=== PATIENT | male | born 1950 | race Caucasian/White ===

== ENCOUNTER 2017-02-15 03:56 | Inpatient (IN) | payer OTHER ==
[~2017-02-15] VITALS: Ht 167.6 cm; Wt 50.8 kg
[2017-02-15] VITALS (7 sets, daily range): BP systolic 110–131
[2017-02-15] MEDS ORDERED: cefTRIAXone 1 GM IVPB PREMIX 50 ML IV ONE (04:15)
[2017-02-15] MEDS ORDERED: NACL 0.9% 1,000 ML IV ONE (04:15)
[2017-02-15] MEDS ORDERED: KETOROLAC TROMETHAMINE 30 MG VIAL IVP ONE (04:15)
[2017-02-15] MEDS ORDERED: HYDR-3924 PO (04:24)
[2017-02-15] MEDS ORDERED: KETO10TA2 PO (04:24)
[2017-02-15] MEDS ORDERED: HYDR2TAB34 PO (04:24)
[2017-02-15] MEDS ORDERED: TAMS-11 PO (04:24)
[2017-02-15] MEDS ORDERED: MORPHINE 4 MG/ML INJ. SYRINGE IVP ONE (04:30)
[2017-02-15 04:48] LABS: BILIRUBIN,URINE 2+ (NEGATIVE); BLOOD, URINE 3+ (NEGATIVE); CLARITY/URINE CLOUDY (CLEAR); COLOR,URINE RED (YELLOW); GLUCOSE,URINE NEGATIVE (NEGATIVE); KETONES,URINE TRACE (NEGATIVE); LEUKOCYTE ESTERASE ,URINE 1+ (NEGATIVE); NITRITE, URINE POSITIVE (NEGATIVE); PH,URINE >=9.0 (5.0-8.0); PROTEIN URINE 3+ (NEGATIVE)
[2017-02-15 04:55] LABS: CALCIUM 8.7 mg/dL (8.4-11.0); CREATININE 0.98 mg/dL (0.55-1.30); POTASSIUM 4.2 mmol/L (3.5-5.1)
[2017-02-15 04:59] LABS: TOTAL BILIRUBIN 0.4 mg/dL (0.0-1.0); TOTAL PROTEIN, SERUM 7.5 g/dL (6.4-8.3)
[2017-02-15 04:59] LABS: BACTERIA,URINE MODERATE /HPF (None Seen); RBC,URINE >100 /HPF (0-3)
[2017-02-15 05:18] LABS: HEMOGLOBIN 10.1 g/dL (14.0-18.0); MEAN CORPUSCULAR HEMOGLOBIN 33 pg (27-31); MEAN CORPUSCULAR HGB CONC 35 % (32-36); MEAN CORPUSCULAR VOLUME 95 fL (79.0-98.0); PLATELET COUNT (AUTO) 241 K/uL (130-430); RED BLOOD CELL COUNT(AUTO) 3.07 MIL/uL (4.2-6.2); RED CELL DISTRIBUTION WIDTH 11.9 % (9.0-15.0)
[2017-02-15 05:36] LABS: ATYPICAL LYMPHOCYTES % 0 % (0-0); BAND % (MANUAL) 9 % (0-6); LYMPHOCYTES % (MANUAL) 2 % (20-46); MONOCYTES % (MANUAL) 2 % (0-11)
[2017-02-15 05:37] LABS: BASOPHILS % (MANUAL) 0 % (0-2); EOSINOPHILS % (MANUAL) 0 % (0-7)
[2017-02-15] MEDS: D5NS 1,000 ML IV SCH ×2 (06:08→17:33)
[2017-02-15] MEDS ORDERED: DOCUSATE SODIUM 100 MG CAPSULE PO PRN (11:00)
[2017-02-15] MEDS ORDERED: MAGNESIUM SULFATE 50 ML IV PRN (11:00)
[2017-02-15] MEDS ORDERED: LORazepam 2 MG/ML VIAL IVP PRN (11:00)
[2017-02-15] MEDS ORDERED: POTASSIUM CHLORIDE 10 MEQ TAB.PRT.SR PO PRN (11:00)
[2017-02-15] MEDS ORDERED: ACETAMINOPHEN 325 MG TABLET PO PRN (11:00)
[2017-02-15] MEDS ORDERED: ZOLPIDEM TARTRATE 5 MG TABLET PO PRN (11:00)
[2017-02-15] MEDS ORDERED: ONDANSETRON HCL 4 MG/2 ML VIAL IVP PRN (11:00)
[2017-02-15] MEDS: MORPHINE 2 MG/ML INJ. SYRINGE IVP PRN ×3 (12:45→23:21)
[2017-02-15] MEDS ORDERED: TAMSULOSIN HCL 0.4 MG CAP PO SCH (21:00)
[2017-02-15] MEDS: HEPARIN SODIUM,PORCINE 5000 UNITS/ML VIAL SUBCUT SCH (21:00)
[2017-02-15] MEDS: HYDROcodone/ACETAMIN 7.5-325 MG TAB PO PRN (21:49)
[2017-02-16] MEDS ORDERED: cefTRIAXone 1 GM in D5W 50 ML IV SCH (05:00)
[2017-02-16] MEDS ORDERED: IOHEXOL 100 ML IV ONE (06:07)
[2017-02-16] MEDS: D5NS 1,000 ML IV SCH (06:32)
[2017-02-16 06:38] LABS: BASOPHILS % (AUTO) 0.1 % (0.0-2.0); EOSINOPHILS % (AUTO) 0.1 % (0.0-4.0); HEMATOCRIT 27.8 % (36-54); HEMOGLOBIN 9.5 g/dL (14.0-18.0); LYMPHOCYTES # (AUTO) 0.3 K/uL (1.0-5.5); MEAN CORPUSCULAR HEMOGLOBIN 33 pg (27-31); MEAN CORPUSCULAR HGB CONC 34 % (32-36); MEAN CORPUSCULAR VOLUME 95 fL (79.0-98.0); MONOCYTES # (AUTO) 0.3 K/uL (0.0-1.0); MONOCYTES % (AUTO) 4.2 % (1.7-9.3); NEUTROPHILS # (AUTO) 6.4 K/uL (1.8-7.7); NEUTROPHILS % (AUTO) 91.6 % (40.0-70.0); PLATELET COUNT (AUTO) 263 K/uL (130-430); RED BLOOD CELL COUNT(AUTO) 2.93 MIL/uL (4.2-6.2); RED CELL DISTRIBUTION WIDTH 12.2 % (9.0-15.0)
[2017-02-16 07:01] LABS: CALCIUM 8.5 mg/dL (8.4-11.0); CREATININE 0.69 mg/dL (0.55-1.30); POTASSIUM 3.8 mmol/L (3.5-5.1)
[2017-02-16 08:00] VITALS: BP_SYST 135
[2017-02-16] MEDS: HEPARIN SODIUM,PORCINE 5000 UNITS/ML VIAL SUBCUT SCH (09:51)
[2017-02-16 10:20] LABS: BLOOD, URINE 3+ (NEGATIVE); CLARITY/URINE SL CLOUDY (CLEAR); COLOR,URINE BROWN (YELLOW); GLUCOSE,URINE NEGATIVE (NEGATIVE); KETONES,URINE NEGATIVE (NEGATIVE); LEUKOCYTE ESTERASE ,URINE 1+ (NEGATIVE); NITRITE, URINE POSITIVE (NEGATIVE); PH,URINE 8.5 (5.0-8.0); PROTEIN URINE 3+ (NEGATIVE)
[2017-02-16 10:29] LABS: BILIRUBIN,URINE NEGATIVE (NEGATIVE)
[2017-02-16 10:31] LABS: BACTERIA,URINE MODERATE /HPF (None Seen); MUCUS,URINE None Seen /LPF (None Seen); RBC,URINE >100 /HPF (0-3)
[2017-02-16 12:20] VITALS: BP_SYST 126
[2017-02-16] MEDS: PIPERACILLIN/TAZO 3.375/DEX-IS 50 ML IV SCH ×3 (12:43→23:57)
[2017-02-16 16:42] VITALS: BP_SYST 136
[2017-02-16] MEDS: MORPHINE 2 MG/ML INJ. SYRINGE IVP PRN (18:15)
[2017-02-16 20:00] VITALS: BP_SYST 128
[2017-02-16] MEDS ORDERED: TAMSULOSIN HCL 0.4 MG CAP PO SCH (21:00)
[2017-02-16] MEDS: LACTOBACILLUS RHAMNOSUS GG 1 CAP CAPSULE PO SCH (21:47)
[2017-02-17 00:21] VITALS: BP_SYST 127
[2017-02-17 04:27] VITALS: BP_SYST 128
[2017-02-17] MEDS: PIPERACILLIN/TAZO 3.375/DEX-IS 50 ML IV SCH ×3 (05:19→17:56)
[2017-02-17] MEDS: D5NS 1,000 ML IV SCH (05:20)
[2017-02-17] MEDS: MORPHINE 2 MG/ML INJ. SYRINGE IVP PRN ×5 (05:27→20:40)
[2017-02-17 06:47] LABS: BASOPHILS % (AUTO) 0.2 % (0.0-2.0); EOSINOPHILS % (AUTO) 0.5 % (0.0-4.0); HEMOGLOBIN 7.4 g/dL (14.0-18.0); LYMPHOCYTES # (AUTO) 0.4 K/uL (1.0-5.5); LYMPHOCYTES % (AUTO) 11.9 % (20.5-51.5); MEAN CORPUSCULAR HEMOGLOBIN 32 pg (27-31); MEAN CORPUSCULAR HGB CONC 35 % (32-36); MEAN CORPUSCULAR VOLUME 94 fL (79.0-98.0); MONOCYTES # (AUTO) 0.3 K/uL (0.0-1.0); MONOCYTES % (AUTO) 8.1 % (1.7-9.3); NEUTROPHILS # (AUTO) 2.7 K/uL (1.8-7.7); NEUTROPHILS % (AUTO) 79.3 % (40.0-70.0); PLATELET COUNT (AUTO) 264 K/uL (130-430); RED BLOOD CELL COUNT(AUTO) 2.28 MIL/uL (4.2-6.2); RED CELL DISTRIBUTION WIDTH 11.8 % (9.0-15.0); WHITE BLOOD COUNT (AUTO) 3.4 K/uL (4.8-10.8)
[2017-02-17 07:07] LABS: HEMATOCRIT 21.3 % (36-54)
[2017-02-17 07:20] LABS: CALCIUM 8.2 mg/dL (8.4-11.0); CREATININE 0.74 mg/dL (0.55-1.30); POTASSIUM 3.9 mmol/L (3.5-5.1)
[2017-02-17] MEDS: LACTOBACILLUS RHAMNOSUS GG 1 CAP CAPSULE PO SCH ×2 (08:20→20:39)
[2017-02-17] MEDS ORDERED: TAMSULOSIN HCL 0.4 MG CAP PO SCH (09:53)
[2017-02-17] MEDS ORDERED: COMMUNICATION ORDER XX ONE (10:00)
[2017-02-17] MEDS ORDERED: TAMSULOSIN HCL 0.4 MG CAP PO ONE (10:15)
[2017-02-17] MEDS: HYDROcodone/ACETAMIN 7.5-325 MG TAB PO PRN ×2 (11:18→15:19)
[2017-02-17 12:18] VITALS: BP_SYST 107
[2017-02-17] MEDS: NACL 0.9% 1,000 ML IV SCH (16:34)
[2017-02-17 16:40] VITALS: BP_SYST 100
[2017-02-17 18:03] LABS: HEMOGLOBIN 8.1 g/dL (14.0-18.0)
[2017-02-17 20:15] VITALS: BP_SYST 110
[2017-02-17] MEDS: TAMSULOSIN HCL 0.4 MG CAP PO SCH (20:39)
[2017-02-18] VITALS (7 sets, daily range): BP systolic 98–134
[2017-02-18] MEDS: MORPHINE 2 MG/ML INJ. SYRINGE IVP PRN ×5 (00:55→19:56)
[2017-02-18] MEDS: NACL 0.9% 1,000 ML IV SCH ×3 (01:15→21:24)
[2017-02-18] MEDS: PIPERACILLIN/TAZO 3.375/DEX-IS 50 ML IV SCH ×5 (02:50→23:02)
[2017-02-18 06:48] LABS: BASOPHILS % (AUTO) 0.4 % (0.0-2.0); EOSINOPHILS # (AUTO) 0.1 K/uL (0.0-0.4); HEMATOCRIT 25.4 % (36-54); HEMOGLOBIN 8.8 g/dL (14.0-18.0); LYMPHOCYTES # (AUTO) 0.5 K/uL (1.0-5.5); LYMPHOCYTES % (AUTO) 16.5 % (20.5-51.5); MEAN CORPUSCULAR HEMOGLOBIN 31 pg (27-31); MEAN CORPUSCULAR HGB CONC 35 % (32-36); MEAN CORPUSCULAR VOLUME 91 fL (79.0-98.0); MONOCYTES # (AUTO) 0.2 K/uL (0.0-1.0); MONOCYTES % (AUTO) 7.2 % (1.7-9.3); NEUTROPHILS # (AUTO) 2.3 K/uL (1.8-7.7); NEUTROPHILS % (AUTO) 73.9 % (40.0-70.0); PLATELET COUNT (AUTO) 248 K/uL (130-430); RED BLOOD CELL COUNT(AUTO) 2.81 MIL/uL (4.2-6.2); RED CELL DISTRIBUTION WIDTH 13.7 % (9.0-15.0); WHITE BLOOD COUNT (AUTO) 3.1 K/uL (4.8-10.8)
[2017-02-18 07:05] LABS: CALCIUM 8.1 mg/dL (8.4-11.0); CREATININE 0.68 mg/dL (0.55-1.30); POTASSIUM 4.2 mmol/L (3.5-5.1)
[2017-02-18] MEDS: TAMSULOSIN HCL 0.4 MG CAP PO SCH ×2 (09:20→19:55)
[2017-02-18] MEDS: LACTOBACILLUS RHAMNOSUS GG 1 CAP CAPSULE PO SCH ×2 (09:21→19:55)
[2017-02-18] MEDS: HYDROcodone/ACETAMIN 7.5-325 MG TAB PO PRN ×3 (09:28→23:03)
[2017-02-18] MEDS ORDERED: MORPHINE SULFATE 100 MG TABLET.SA PO SCH (21:00)
[2017-02-18] MEDS: MORPHINE SULFATE 15 MG TABLET.SA PO SCH (22:45)
[2017-02-19] MEDS: MORPHINE 2 MG/ML INJ. SYRINGE IVP PRN ×2 (00:04→12:40)
[2017-02-19 03:43] VITALS: BP_SYST 125
[2017-02-19] MEDS: HYDROcodone/ACETAMIN 7.5-325 MG TAB PO PRN (05:05)
[2017-02-19] MEDS: PIPERACILLIN/TAZO 3.375/DEX-IS 50 ML IV SCH ×2 (05:06→11:52)
[2017-02-19 06:39] LABS: CALCIUM 8.5 mg/dL (8.4-11.0); CREATININE 0.78 mg/dL (0.55-1.30); POTASSIUM 4.2 mmol/L (3.5-5.1)
[2017-02-19 06:48] LABS: BASOPHILS % (AUTO) 0.5 % (0.0-2.0); EOSINOPHILS # (AUTO) 0.1 K/uL (0.0-0.4); EOSINOPHILS % (AUTO) 2.5 % (0.0-4.0); HEMATOCRIT 27.9 % (36-54); HEMOGLOBIN 9.7 g/dL (14.0-18.0); LYMPHOCYTES # (AUTO) 0.4 K/uL (1.0-5.5); LYMPHOCYTES % (AUTO) 13.9 % (20.5-51.5); MEAN CORPUSCULAR HEMOGLOBIN 32 pg (27-31); MEAN CORPUSCULAR HGB CONC 35 % (32-36); MEAN CORPUSCULAR VOLUME 91 fL (79.0-98.0); MONOCYTES # (AUTO) 0.2 K/uL (0.0-1.0); MONOCYTES % (AUTO) 7.1 % (1.7-9.3); NEUTROPHILS # (AUTO) 2.2 K/uL (1.8-7.7); PLATELET COUNT (AUTO) 298 K/uL (130-430); RED BLOOD CELL COUNT(AUTO) 3.08 MIL/uL (4.2-6.2); RED CELL DISTRIBUTION WIDTH 13.2 % (9.0-15.0); WHITE BLOOD COUNT (AUTO) 2.9 K/uL (4.8-10.8)
[2017-02-19 07:55] VITALS: BP_SYST 119
[2017-02-19] MEDS: TAMSULOSIN HCL 0.4 MG CAP PO SCH (08:23)
[2017-02-19] MEDS: NACL 0.9% 1,000 ML IV SCH (08:23)
[2017-02-19] MEDS: LACTOBACILLUS RHAMNOSUS GG 1 CAP CAPSULE PO SCH (08:23)
[2017-02-19] MEDS: MORPHINE SULFATE 15 MG TABLET.SA PO SCH (08:24)
[2017-02-19] MEDS ORDERED: CIPR-211 PO (11:30)
[2017-02-19 12:00] VITALS: BP_SYST 103
[2017-02-19 12:28] VITALS: BP_SYST 126
== END 2017-02-19 15:48 | disposition home health service (06) | DRG 812 ==
LOC: SED 03:56 → SMU 05:21
PROVIDERS: ADMIT General Practice; ATTEND General Practice
PROC: 30233N1 Transfusion of Nonautologous Red Blood Cells into Peripheral Vein, Percutaneous Approach (ICD-10-PCS; principal; 2017-02-17)
DX: D62 Acute posthemorrhagic anemia (principal); N39.0 Urinary tract infection, site not specified; E44.0 Moderate protein-calorie malnutrition; E87.1 Hypo-osmolality and hyponatremia; Z68.1 Body mass index [BMI] 19.9 or less, adult; R31.0 Gross hematuria; B96.89 Other specified bacterial agents as the cause of diseases classified elsewhere; G89.29 Other chronic pain; C09.9 Malignant neoplasm of tonsil, unspecified; D63.8 Anemia in other chronic diseases classified elsewhere; R13.10 Dysphagia, unspecified; Z92.3 Personal history of irradiation; Z79.899 Other long term (current) drug therapy; Z80.9 Family history of malignant neoplasm, unspecified; Z92.21 Personal history of antineoplastic chemotherapy
CPT/HCPCS: 36415; 76856-TC; 80048; 80053; 81000-TC; 83051; 83605; 83735-TC; 85007; 85014-TC; 85025; 85027; 86886; 86900; 86901; 86920; 87040-TC; 87086; 87186-TC; 99285; J0696; J1644; J1885; J2270; J2405; J2543; J7030; J7042; J7050; J7060; P9021; Q9967

== ENCOUNTER 2017-03-27 13:05 | Outpatient (CLI) | payer OTHER ==
[~2017-03-27 13:05] MED LIST: CIPR-211 PO; HYDR-3924 PO; HYDR2TAB34 PO; KETO10TA2 PO; TAMS-11 PO
== END 2017-03-27 17:54 | disposition home or self-care (01) ==
LOC: SUS 13:05
PROVIDERS: ATTEND Urology
DX: N40.1 Benign prostatic hyperplasia with lower urinary tract symptoms (principal); N13.30 Unspecified hydronephrosis; R31.0 Gross hematuria
CPT/HCPCS: 36415; 76770; 84153

== ENCOUNTER 2017-04-14 10:27 | Inpatient (IN) | payer OTHER ==
[~2017-04-14] VITALS: Ht 167.6 cm; Wt 51.3 kg
[2017-04-14] MEDS ORDERED: CEFTRIAXONE SOD 1 GM/ DEXTROSE,ISO 50 ML PREMIX IV ONE (11:45)
[2017-04-14] MEDS ORDERED: LR 1,000 ML IV.SOLN IV ONE (12:30)
[2017-04-14] MEDS ORDERED: ONDANSETRON HCL 4 MG/2 ML VIAL IVP ONE (12:30)
[2017-04-14] MEDS ORDERED: fentaNYL CITRATE 250 MCG/5 ML AMP IV ONE (12:30)
[2017-04-14] MEDS ORDERED: SEVOFLURANE 15 MIN GAS INH ONE (12:30)
[2017-04-14] MEDS ORDERED: PROPOFOL 200MG/ 20ML VIAL (DIPRIVAN) IV ONE (12:30)
[2017-04-14] MEDS ORDERED: KETOROLAC TROMETHAMINE 30 MG VIAL IVP ONE (12:30)
[2017-04-14] MEDS ORDERED: DEXAMETHASONE SOD PHOSPHATE 4 MG/ML VIAL IVP ONE (12:30)
[2017-04-14] MEDS ORDERED: MIDAZOLAM HCL 5 MG/5 ML VIAL IVP ONE (12:30)
[2017-04-14] MEDS ORDERED: ROCURONIUM BROMIDE 10 MG/ML (ZEMURON) IV ONE (12:30)
[2017-04-14] MEDS ORDERED: ONDANSETRON HCL 4 MG/2 ML VIAL IM PRN (12:45)
[2017-04-14] MEDS ORDERED: MORPHINE 2 MG/ML INJ. SYRINGE IVP PRN (12:45)
[2017-04-14] MEDS ORDERED: HYDROcodone/ACETAMIN 5-325 MG TAB (NORCO/ VICODIN) PO PRN (12:45)
[2017-04-14] MEDS ORDERED: LR 1,000 ML IV SCH (13:25)
[2017-04-14] MEDS ORDERED: MEPERIDINE HCL/PF 25 MG/ML DISP.SYRIN IVP PRN (13:30)
[2017-04-14] MEDS ORDERED: HYDROmorphone 2 MG/ML VIAL IVP PRN ×2 (13:30)
[2017-04-14] MEDS ORDERED: HYDROmorphone 1 MG INJ. 1 MG/ML AMPUL IVP PRN (13:30)
[2017-04-14 15:50] VITALS: BP_SYST 119
[2017-04-14 16:00] VITALS: BP_SYST 119
[2017-04-14 16:45] VITALS: BP_SYST 112
[2017-04-14] MEDS: NACL 0.9% 1,000 ML IV SCH (17:43)
[2017-04-15] VITALS (7 sets, daily range): BP systolic 90–134
[2017-04-15 08:11] LABS: BASOPHILS % (AUTO) 0.1 % (0.0-2.0); EOSINOPHILS % (AUTO) 0.1 % (0.0-4.0); HEMATOCRIT 26.4 % (36-54); HEMOGLOBIN 8.5 g/dL (14.0-18.0); LYMPHOCYTES # (AUTO) 0.6 K/uL (1.0-5.5); LYMPHOCYTES % (AUTO) 16.3 % (20.5-51.5); MEAN CORPUSCULAR HEMOGLOBIN 28 pg (27-31); MEAN CORPUSCULAR HGB CONC 32 % (32-36); MEAN CORPUSCULAR VOLUME 88 fL (79.0-98.0); MONOCYTES # (AUTO) 0.2 K/uL (0.0-1.0); MONOCYTES % (AUTO) 5.8 % (1.7-9.3); NEUTROPHILS % (AUTO) 77.7 % (40.0-70.0); PLATELET COUNT (AUTO) 197 K/uL (130-430); RED BLOOD CELL COUNT(AUTO) 2.99 MIL/uL (4.2-6.2); RED CELL DISTRIBUTION WIDTH 13.3 % (9.0-15.0); WHITE BLOOD COUNT (AUTO) 3.8 K/uL (4.8-10.8)
[2017-04-15 08:17] LABS: CALCIUM 7.9 mg/dL (8.4-11.0); CREATININE 0.68 mg/dL (0.55-1.30); PHOSPHORUS 3.7 mg/dL (2.7-4.5)
[2017-04-15] MEDS: NACL 0.9% 1,000 ML IV SCH ×4 (12:33→20:33)
[2017-04-15] MEDS ORDERED: OXYC10TA71 PO (15:18)
[2017-04-15] MEDS ORDERED: FINA5TAB3 PO (15:18)
[2017-04-15] MEDS ORDERED: HYDR-4100 PO (15:18)
[2017-04-15] MEDS ORDERED: cefTRIAXone 1 GM in D5W 50 ML IV SCH (16:00)
[2017-04-16] MEDS: NACL 0.9% 1,000 ML IV SCH ×2 (00:14→13:01)
[2017-04-16 01:12] VITALS: BP_SYST 113
[2017-04-16 04:00] VITALS: BP_SYST 110
[2017-04-16 08:00] VITALS: BP_SYST 119
[2017-04-16 08:18] LABS: BASOPHILS % (AUTO) 0.3 % (0.0-2.0); EOSINOPHILS # (AUTO) 0.1 K/uL (0.0-0.4); EOSINOPHILS % (AUTO) 3.1 % (0.0-4.0); HEMOGLOBIN 8.5 g/dL (14.0-18.0); LYMPHOCYTES # (AUTO) 0.7 K/uL (1.0-5.5); LYMPHOCYTES % (AUTO) 20.8 % (20.5-51.5); MEAN CORPUSCULAR HEMOGLOBIN 29 pg (27-31); MEAN CORPUSCULAR HGB CONC 33 % (32-36); MEAN CORPUSCULAR VOLUME 89 fL (79.0-98.0); MONOCYTES # (AUTO) 0.2 K/uL (0.0-1.0); MONOCYTES % (AUTO) 6.8 % (1.7-9.3); NEUTROPHILS # (AUTO) 2.2 K/uL (1.8-7.7); PLATELET COUNT (AUTO) 180 K/uL (130-430); RED BLOOD CELL COUNT(AUTO) 2.91 MIL/uL (4.2-6.2); RED CELL DISTRIBUTION WIDTH 13.5 % (9.0-15.0); WHITE BLOOD COUNT (AUTO) 3.2 K/uL (4.8-10.8)
[2017-04-16 08:35] LABS: CALCIUM 8.1 mg/dL (8.4-11.0); CREATININE 0.64 mg/dL (0.55-1.30); POTASSIUM 4.2 mmol/L (3.5-5.1)
[2017-04-16] MEDS ORDERED: oxyCODONE HCL 10 MG TAB.ER.12H PO SCH (09:00)
[2017-04-16] MEDS: HYDROcodone/ACETAMIN 10-325 MG TAB PO SCH ×2 (09:09→12:55)
[2017-04-16 12:35] VITALS: BP_SYST 99
[2017-04-16 14:09] VITALS: BP_SYST 99
[2017-04-16] MEDS ORDERED: CIPR-211 PO (14:23)
== END 2017-04-16 15:30 | disposition home or self-care (01) | DRG 713 ==
LOC: SMU 10:27
PROVIDERS: ADMIT Urology; ATTEND Urology
PROC: 0VB08ZZ Excision of Prostate, Via Natural or Artificial Opening Endoscopic (ICD-10-PCS; principal; 2017-04-14 11:30)
DX: N40.1 Benign prostatic hyperplasia with lower urinary tract symptoms (principal); N13.8 Other obstructive and reflux uropathy; E46 Unspecified protein-calorie malnutrition; Z68.1 Body mass index [BMI] 19.9 or less, adult; R33.8 Other retention of urine; N32.3 Diverticulum of bladder; N32.89 Other specified disorders of bladder; Z85.818 Personal history of malignant neoplasm of other sites of lip, oral cavity, and pharynx; Z87.891 Personal history of nicotine dependence; Z93.1 Gastrostomy status
CPT/HCPCS: 36415; 80048; 83735-TC; 84100-TC; 85025; 86886; 86900; 86901; 87081; 87230-TC; 88305; 94010; J0696; J1100; J1885; J2250; J2270; J2405; J2704; J3010; J7030; J7060; J7120

== ENCOUNTER 2017-09-19 10:34 | Outpatient (CLI) | payer OTHER ==
[~2017-09-19 10:34] MED LIST changes: -HYDR-3924 PO; +HYDR-4100 PO; -HYDR2TAB34 PO; -KETO10TA2 PO; +OXYC10TA71 PO; -TAMS-11 PO
== END 2017-09-19 20:09 | disposition home or self-care (01) ==
LOC: SUS 10:34
PROVIDERS: ATTEND Urology
DX: N40.1 Benign prostatic hyperplasia with lower urinary tract symptoms (principal)
CPT/HCPCS: 76770

== ENCOUNTER 2017-10-27 19:19 | Emergency (ER) | payer OTHER ==
[~2017-10-27] VITALS: Ht 167.6 cm; Wt 52.2 kg
[2017-10-27 19:34] VITALS: BP_SYST 113
--- NOTE | 2017-10-27 19:40 | NUR ---
Patient to ER bed 3 to gown for evaluation. Side rails up. Report given to Olivia ANGULO.
--- NOTE | 2017-10-27 19:55 | NUR ---
Patient AOx4, ambulatory, presents to ER with complaint of diarrhea x4 days. Patient states no fever, chills, nausea, or vomiting. No other symptoms or complaints at this time. at bedside.
--- NOTE | 2017-10-27 20:23 | NUR ---
REHANA Piedra at bedside for medical evaluation.
[2017-10-27] MEDS ORDERED: NACL 0.9% 1,000 ML IV ONE (20:28)
--- NOTE | 2017-10-27 20:35 | NUR ---
# 20 gauge angiocath placed to LAC. Use of asceptic technique. Opsite placed over site. Blood return noted. Blood for lab drawn from site. Flushed with 10 cc of normal saline. No evidence of infiltration noted. Patient tolerated well.
[2017-10-27 21:09] LABS: CALCIUM 9.3 mg/dL (8.4-11.0); CREATININE 0.56 mg/dL (0.55-1.30); POTASSIUM 4.4 mmol/L (3.5-5.1)
--- NOTE | 2017-10-27 21:13 | NUR ---
IVF infusing with no s/s of infiltration at this time. Will cont to monitor.
[2017-10-27 21:15] LABS: ALBUMIN 3.5 g/dL (3.4-4.8); TOTAL BILIRUBIN 0.3 mg/dL (0.0-1.0)
[2017-10-27] MEDS ORDERED: NS 500 ML IV ONE (21:30)
[2017-10-27 21:47] LABS: MEAN CORPUSCULAR HEMOGLOBIN 30 pg (27-31); MEAN CORPUSCULAR HGB CONC 33 % (32-36); MEAN CORPUSCULAR VOLUME 91 fL (79.0-98.0); PLATELET COUNT (AUTO) 205 K/uL (130-430); RED BLOOD CELL COUNT(AUTO) 4.08 MIL/uL (4.2-6.2); RED CELL DISTRIBUTION WIDTH 12.4 % (9.0-15.0); WHITE BLOOD COUNT (AUTO) 2.5 K/uL (4.8-10.8)
--- NOTE | 2017-10-27 22:17 | NUR ---
Patient refusing straight cath for urine specimen. Patient states he does not have urge to have a bowel movement. MD Piedra made aware.
[2017-10-27 22:19] LABS: BAND % (MANUAL) 24 % (0-6); LYMPHOCYTES % (MANUAL) 19 % (20-46); MONOCYTES % (MANUAL) 18 % (0-11)
[2017-10-27 22:20] LABS: BASOPHILS % (MANUAL) 0 % (0-2); EOSINOPHILS % (MANUAL) 2 % (0-7)
[2017-10-27 23:31] VITALS: BP_SYST 117
--- NOTE | 2017-10-27 23:31 | NUR ---
Patient given written and verbal discharge instructions and verbalizes understanding. ER MD discussed with patient the results and treatment provided. Patient in stable condition. ID arm band removed. IV catheter removed intact and dressing applied, no active bleeding. Patient educated on pain management and to follow up with PMD. Pain Scale 0/10. Opportunity for questions provided and answered.
== END 2017-10-27 23:31 | disposition home or self-care (01) ==
LOC: SED 19:19
DX: E86.0 Dehydration (principal); R19.7 Diarrhea, unspecified; Z91.011 Allergy to milk products
CPT/HCPCS: 36415; 80053; 85007; 85027; 96360; 96361; 99285; J7030; J7040

== ENCOUNTER 2017-11-26 07:22 | Emergency (ER) | payer OTHER ==
[~2017-11-26] VITALS: Ht 167.6 cm; Wt 56.7 kg
[2017-11-26 07:42] VITALS: BP_SYST 139
[2017-11-26] MEDS ORDERED: GASTROGRAFIN 120 ML ONE (09:26)
[2017-11-26 09:39] LABS: BASOPHILS % (AUTO) 0.4 % (0.0-2.0); EOSINOPHILS # (AUTO) 0.1 K/uL (0.0-0.4); EOSINOPHILS % (AUTO) 3.5 % (0.0-4.0); HEMATOCRIT 36.1 % (36-54); HEMOGLOBIN 11.9 g/dL (14.0-18.0); LYMPHOCYTES # (AUTO) 0.8 K/uL (1.0-5.5); LYMPHOCYTES % (AUTO) 21.4 % (20.5-51.5); MEAN CORPUSCULAR HEMOGLOBIN 29 pg (27-31); MEAN CORPUSCULAR HGB CONC 33 % (32-36); MEAN CORPUSCULAR VOLUME 90 fL (79.0-98.0); MONOCYTES # (AUTO) 0.4 K/uL (0.0-1.0); MONOCYTES % (AUTO) 9.5 % (1.7-9.3); NEUTROPHILS # (AUTO) 2.6 K/uL (1.8-7.7); NEUTROPHILS % (AUTO) 65.2 % (40.0-70.0); PLATELET COUNT (AUTO) 216 K/uL (130-430); RED BLOOD CELL COUNT(AUTO) 4.04 MIL/uL (4.2-6.2); RED CELL DISTRIBUTION WIDTH 12.1 % (9.0-15.0); WHITE BLOOD COUNT (AUTO) 3.9 K/uL (4.8-10.8)
[2017-11-26 10:02] LABS: CREATININE 0.6 mg/dL (0.55-1.30); POTASSIUM 4.5 mmol/L (3.5-5.1)
[2017-11-26 10:09] LABS: ALBUMIN 3.2 g/dL (3.4-4.8); TOTAL BILIRUBIN 0.2 mg/dL (0.0-1.0)
[2017-11-26 10:12] LABS: PROTHROMBIN TIME 9.9 SECS (9.5-12.5)
[2017-11-26 10:15] VITALS: BP_SYST 139
== END 2017-11-26 10:15 | disposition left against medical advice (07) ==
LOC: SED 07:22
DX: K94.23 Gastrostomy malfunction (principal); Z91.011 Allergy to milk products
CPT/HCPCS: 36415; 74240; 80053; 83690; 85025; 85610; 99285; Q9963

== ENCOUNTER 2018-01-29 08:35 | Day surgery (SDC) | payer OTHER ==
[2018-01-28 12:00] LABS: CREATININE 0.61 mg/dL (0.55-1.30); POTASSIUM 4.6 mmol/L (3.5-5.1)
[2018-01-28 12:07] LABS: ALBUMIN 3.4 g/dL (3.4-4.8); TOTAL BILIRUBIN 0.2 mg/dL (0.0-1.0)
[2018-01-28 12:18] LABS: BASOPHILS % (AUTO) 0.2 % (0.0-2.0); EOSINOPHILS # (AUTO) 0.1 K/uL (0.0-0.4); EOSINOPHILS % (AUTO) 3.8 % (0.0-4.0); HEMATOCRIT 35.9 % (36-54); HEMOGLOBIN 12.1 g/dL (14.0-18.0); LYMPHOCYTES # (AUTO) 0.7 K/uL (1.0-5.5); LYMPHOCYTES % (AUTO) 23.2 % (20.5-51.5); MEAN CORPUSCULAR HEMOGLOBIN 30 pg (27-31); MEAN CORPUSCULAR HGB CONC 34 % (32-36); MEAN CORPUSCULAR VOLUME 89 fL (79.0-98.0); MONOCYTES # (AUTO) 0.3 K/uL (0.0-1.0); MONOCYTES % (AUTO) 11.7 % (1.7-9.3); NEUTROPHILS # (AUTO) 1.9 K/uL (1.8-7.7); NEUTROPHILS % (AUTO) 61.1 % (40.0-70.0); PLATELET COUNT (AUTO) 182 K/uL (130-430); RED BLOOD CELL COUNT(AUTO) 4.05 MIL/uL (4.2-6.2); RED CELL DISTRIBUTION WIDTH 13.4 % (9.0-15.0)
[~2018-01-29] VITALS: Ht 167.6 cm; Wt 59.4 kg
[~2018-01-29 08:35] MED LIST changes: +CEFAZOLIN 1 GM IVPB PREMIX 50 ML IV ONE
[2018-01-29] MEDS ORDERED: ONDANSETRON HCL 4 MG/2 ML VIAL IVP PRN ×2 (11:30→12:00)
[2018-01-29] MEDS ORDERED: fentaNYL CITRATE/PF 100 MCG/2 ML AMP IVP PRN ×2 (11:30)
[2018-01-29] MEDS ORDERED: PROPOFOL 200MG/ 20ML VIAL (DIPRIVAN) IV ONE (11:55)
[2018-01-29] MEDS ORDERED: MIDAZOLAM HCL 5 MG/ML VIAL (VERSED) IV ONE (11:55)
[2018-01-29] MEDS ORDERED: LR 1,000 ML IV.SOLN IV ONE (11:55)
[2018-01-29] MEDS ORDERED: NS IRRIG SOLN 1000 ML IR ONE (11:55)
[2018-01-29] MEDS ORDERED: ACETAMINOPHEN 325 MG TABLET PO PRN (12:00)
[2018-01-29] MEDS ORDERED: HYDROcodone/ACETAMIN 5-325 MG TAB (NORCO/ VICODIN) PO PRN (12:00)
[2018-01-29] MEDS ORDERED: MORPHINE 4 MG/ML INJ. SYRINGE IVP PRN (12:00)
[2018-01-29 14:13] VITALS: BP_SYST 112
== END 2018-01-29 13:40 | disposition home or self-care (01) ==
LOC: SMU 08:35 → SDS 08:35
PROVIDERS: ATTEND Surgery
DX: Z45.2 Encounter for adjustment and management of vascular access device (principal); C09.9 Malignant neoplasm of tonsil, unspecified; C79.9 Secondary malignant neoplasm of unspecified site; Z87.891 Personal history of nicotine dependence; Z79.899 Other long term (current) drug therapy; Z98.890 Other specified postprocedural states; Z68.20 Body mass index [BMI] 20.0-20.9, adult; Z88.8 Allergy status to other drugs, medicaments and biological substances; R94.31 Abnormal electrocardiogram [ECG] [EKG]
CPT/HCPCS: 36415; 36561; 71045; 71046; 76000; 80053; 85025; 86886; 86900; 86901; 93005; C1788; J0690; J2250; J2704; J7120

== ENCOUNTER 2018-02-08 15:54 | Emergency (ER) | payer OTHER ==
[~2018-02-08] VITALS: Ht 167.6 cm; Wt 56.7 kg
[~2018-02-08 15:54] MED LIST changes: -CEFAZOLIN 1 GM IVPB PREMIX 50 ML IV ONE
[2018-02-08 16:10] VITALS: BP_SYST 117
[2018-02-08 17:02] LABS: HEMATOCRIT 39.6 % (36-54); HEMOGLOBIN 13.2 g/dL (14.0-18.0); MEAN CORPUSCULAR HEMOGLOBIN 30 pg (27-31); MEAN CORPUSCULAR HGB CONC 33 % (32-36); MEAN CORPUSCULAR VOLUME 90 fL (79.0-98.0); PLATELET COUNT (AUTO) 198 K/uL (130-430); RED BLOOD CELL COUNT(AUTO) 4.42 MIL/uL (4.2-6.2); RED CELL DISTRIBUTION WIDTH 13.3 % (9.0-15.0); WHITE BLOOD COUNT (AUTO) 19.2 K/uL (4.8-10.8)
[2018-02-08 17:21] LABS: ALBUMIN 3.3 g/dL (3.4-4.8); CALCIUM 8.9 mg/dL (8.4-11.0); CREATININE 0.58 mg/dL (0.55-1.30); TOTAL BILIRUBIN 0.4 mg/dL (0.0-1.0)
[2018-02-08] MEDS: ONDANSETRON HCL 4 MG/2 ML VIAL IVP ONE (17:23)
[2018-02-08] MEDS: KETOROLAC TROMETHAMINE 30 MG VIAL IVP ONE (17:24)
[2018-02-08] MEDS: NACL 0.9% 1,000 ML IV ONE (17:24)
[2018-02-08 18:10] LABS: BAND % (MANUAL) 25 % (0-6); EOSINOPHILS % (MANUAL) 1 % (0-7); LYMPHOCYTES % (MANUAL) 4 % (20-46); MONOCYTES % (MANUAL) 1 % (0-11)
[2018-02-08 18:11] LABS: BASOPHILS % (MANUAL) 0 % (0-2)
[2018-02-08 18:40] VITALS: BP_SYST 112
== END 2018-02-08 18:40 | disposition home or self-care (01) ==
LOC: SED 15:54
DX: R19.7 Diarrhea, unspecified (principal); R11.2 Nausea with vomiting, unspecified; R03.0 Elevated blood-pressure reading, without diagnosis of hypertension; Z91.011 Allergy to milk products
CPT/HCPCS: 36415; 80053; 83690; 85007; 85027; 96361; 96374; 96375; 99284; J1885; J2405; J7030

== ENCOUNTER 2018-03-09 18:50 | Emergency (ER) | payer OTHER ==
[~2018-03-09] VITALS: Ht 167.6 cm; Wt 58.5 kg
[2018-03-09 19:00] VITALS: BP_SYST 125
[2018-03-09 21:25] VITALS: BP_SYST 125
== END 2018-03-09 21:25 | disposition home or self-care (01) ==
LOC: SED 18:50
DX: K94.23 Gastrostomy malfunction (principal); Z91.011 Allergy to milk products
CPT/HCPCS: 99281

== ENCOUNTER 2018-04-13 12:38 | Outpatient (CLI) | payer OTHER | END 2018-04-14 11:27 | disposition home or self-care (01) | LOC: SCT 12:38 | PROVIDERS: ATTEND Specialist | DX: I70.0 Atherosclerosis of aorta (principal); Z85.118 Personal history of other malignant neoplasm of bronchus and lung; Z85.89 Personal history of malignant neoplasm of other organs and systems; Z93.1 Gastrostomy status | CPT/HCPCS: 71250-TC ==

== ENCOUNTER 2018-04-30 14:12 | Outpatient (CLI) | payer OTHER ==
[2018-04-30 14:35] LABS: BASOPHILS % (AUTO) 0.4 % (0.0-2.0); EOSINOPHILS # (AUTO) 0.1 K/uL (0.0-0.4); EOSINOPHILS % (AUTO) 1.2 % (0.0-4.0); HEMATOCRIT 29.6 % (36-54); HEMOGLOBIN 9.9 g/dL (14.0-18.0); LYMPHOCYTES # (AUTO) 0.8 K/uL (1.0-5.5); LYMPHOCYTES % (AUTO) 10.6 % (20.5-51.5); MEAN CORPUSCULAR HEMOGLOBIN 33 pg (27-31); MEAN CORPUSCULAR HGB CONC 33 % (32-36); MEAN CORPUSCULAR VOLUME 100 fL (79.0-98.0); MONOCYTES # (AUTO) 0.3 K/uL (0.0-1.0); MONOCYTES % (AUTO) 4.5 % (1.7-9.3); NEUTROPHILS # (AUTO) 6.4 K/uL (1.8-7.7); NEUTROPHILS % (AUTO) 83.3 % (40.0-70.0); PLATELET COUNT (AUTO) 114 K/uL (130-430); RED BLOOD CELL COUNT(AUTO) 2.96 MIL/uL (4.2-6.2); RED CELL DISTRIBUTION WIDTH 18.3 % (9.0-15.0); WHITE BLOOD COUNT (AUTO) 7.6 K/uL (4.8-10.8)
[2018-04-30 14:58] LABS: ALBUMIN 3.2 g/dL (3.4-4.8); CALCIUM 8.7 mg/dL (8.4-11.0); CREATININE 0.64 mg/dL (0.55-1.30); PHOSPHORUS 3.4 mg/dL (2.7-4.5); POTASSIUM 4.4 mmol/L (3.5-5.1); TOTAL BILIRUBIN 0.3 mg/dL (0.0-1.0)
== END 2018-04-30 19:29 | disposition home or self-care (01) ==
LOC: SLB 14:12
PROVIDERS: ATTEND Specialist
DX: K22.2 Esophageal obstruction (principal); Z79.899 Other long term (current) drug therapy
CPT/HCPCS: 36415; 80053; 83735-TC; 84100-TC; 84478-TC; 85025

== ENCOUNTER 2018-05-06 | Inpatient (IN) | payer OTHER ==
[~2018-05-06] VITALS: Ht 167.6 cm; Wt 53.7 kg
[2018-05-06 00:19] VITALS: BP_SYST 106
[2018-05-06] MEDS ORDERED: NACL 0.9% 1,000 ML IV ONE (00:19)
[2018-05-06] MEDS ORDERED: MORPHINE 4 MG/ML INJ. SYRINGE IVP ONE (00:30)
[2018-05-06] MEDS ORDERED: ONDANSETRON HCL 4 MG/2 ML VIAL IVP ONE (00:30)
[2018-05-06] MEDS ORDERED: ACETAMINOPHEN 500 MG TABLET PO ONE (00:30)
[2018-05-06 01:43] LABS: BASOPHILS % (AUTO) 0.1 % (0.0-2.0); HEMATOCRIT 33.4 % (36-54); HEMOGLOBIN 11.5 g/dL (14.0-18.0); LYMPHOCYTES # (AUTO) 0.2 K/uL (1.0-5.5); LYMPHOCYTES % (AUTO) 6.7 % (20.5-51.5); MEAN CORPUSCULAR HEMOGLOBIN 34 pg (27-31); MEAN CORPUSCULAR HGB CONC 35 % (32-36); MEAN CORPUSCULAR VOLUME 100 fL (79.0-98.0); MONOCYTES # (AUTO) 0.2 K/uL (0.0-1.0); MONOCYTES % (AUTO) 8.4 % (1.7-9.3); NEUTROPHILS # (AUTO) 2.5 K/uL (1.8-7.7); PLATELET COUNT (AUTO) 265 K/uL (130-430); RED BLOOD CELL COUNT(AUTO) 3.35 MIL/uL (4.2-6.2); RED CELL DISTRIBUTION WIDTH 18.6 % (9.0-15.0)
[2018-05-06 01:52] LABS: WHITE BLOOD COUNT (AUTO) 2.9 K/uL (4.8-10.8)
[2018-05-06 02:00] LABS: CREATININE 0.74 mg/dL (0.55-1.30); POTASSIUM 3.8 mmol/L (3.5-5.1)
[2018-05-06 02:06] LABS: ALBUMIN 3.2 g/dL (3.4-4.8); TOTAL BILIRUBIN 0.3 mg/dL (0.0-1.0)
[2018-05-06] MEDS ORDERED: MORP30TA59 GT (02:19)
[2018-05-06] MEDS ORDERED: FINA5TAB3 GT (02:19)
[2018-05-06] MEDS ORDERED: DIPH-179 GT (02:19)
[2018-05-06] MEDS ORDERED: LEVO50TA77 GT (02:19)
[2018-05-06] MEDS ORDERED: HYDR-4100 GT (02:19)
[2018-05-06] MEDS ORDERED: PROC10TA GT (02:19)
[2018-05-06] MEDS ORDERED: CLAR500T GT (02:19)
[2018-05-06] MEDS ORDERED: ONDA4TAB5 GT (02:19)
[2018-05-06 02:37] LABS: NEUTROPHILS % (AUTO) 84.8 % (40.0-70.0)
[2018-05-06] MEDS ORDERED: D5/0.45 NS 1,000 ML IV SCH (03:00)
[2018-05-06 03:26] VITALS: BP_SYST 96
[2018-05-06] MEDS ORDERED: LORazepam 2 MG/ML VIAL IVP PRN (06:00)
[2018-05-06] MEDS ORDERED: DIPHENOXYLATE HCL/ATROP SULF 2.5 MG TAB PO PRN (06:00)
[2018-05-06] MEDS ORDERED: ACETAMINOPHEN 325 MG TABLET GT PRN (06:00)
[2018-05-06] MEDS ORDERED: PROCHLORPERAZINE MALEATE 10 MG TABLET GT SCH (06:00)
[2018-05-06] MEDS ORDERED: LEVOTHYROXINE SODIUM 0.05 MG TABLET GT SCH (07:00)
[2018-05-06 07:55] VITALS: BP_SYST 123
[2018-05-06] MEDS ORDERED: CLARITHROMYCIN 500 MG TABLET GT SCH (09:00)
[2018-05-06] MEDS ORDERED: HYDROcodone/ACETAMIN 10-325 MG TAB GT SCH (09:00)
[2018-05-06] MEDS ORDERED: ONDANSETRON 4 MG ODT TAB GT SCH (09:00)
[2018-05-06] MEDS ORDERED: FINASTERIDE 5 MG TABLET (PROSCAR) GT SCH (09:00)
[2018-05-06] MEDS ORDERED: MORPHINE SULFATE 30 MG TABLET.SA GT SCH (09:00)
[2018-05-06 12:20] VITALS: BP_SYST 126
== END 2018-05-06 12:10 | disposition left against medical advice (07) | DRG 392 ==
LOC: SED → SMU 02:49
PROVIDERS: ADMIT Preventive Medicine Preventive Medicine/Occupational Environmental Medicine; ATTEND Preventive Medicine Preventive Medicine/Occupational Environmental Medicine
DX: K52.9 Noninfective gastroenteritis and colitis, unspecified (principal); C85.90 Non-Hodgkin lymphoma, unspecified, unspecified site; C34.90 Malignant neoplasm of unspecified part of unspecified bronchus or lung; D64.9 Anemia, unspecified; E03.9 Hypothyroidism, unspecified; N40.0 Benign prostatic hyperplasia without lower urinary tract symptoms; R13.10 Dysphagia, unspecified; E83.52 Hypercalcemia; R73.9 Hyperglycemia, unspecified; D72.819 Decreased white blood cell count, unspecified; G89.29 Other chronic pain; R79.89 Other specified abnormal findings of blood chemistry; E88.09 Other disorders of plasma-protein metabolism, not elsewhere classified; Z53.21 Procedure and treatment not carried out due to patient leaving prior to being seen by health care provider; E86.0 Dehydration; Z93.1 Gastrostomy status; Z91.011 Allergy to milk products; Z79.899 Other long term (current) drug therapy
CPT/HCPCS: 36415; 71045; 80053; 82150-TC; 82272; 82550-TC; 83605; 83690-TC; 84484; 85025; 85610-TC; 85730-TC; 87040-TC; 87045-TC; 87230-TC; 89055; 93005; 96361; 96374; 96375; 99285; J2270; J2274; J2405; J7030; Q0162

== ENCOUNTER 2018-05-12 21:32 | Inpatient (IN) | payer OTHER ==
[~2018-05-12] VITALS: Ht 167.6 cm; Wt 53.1 kg
[~2018-05-12 21:32] MED LIST changes: -CIPR-211 PO; +CLAR500T GT; +DIPH-179 GT; +FINA5TAB3 GT; +HYDR-4100 GT; -HYDR-4100 PO; +LEVO50TA77 GT; +MORP30TA59 GT; +ONDA4TAB5 GT; -OXYC10TA71 PO; +PROC10TA GT
[2018-05-12 21:42] VITALS: BP_SYST 150
[2018-05-12] MEDS ORDERED: NACL 0.9% 1,000 ML IV ONE ×2 (22:30→23:45)
[2018-05-12] MEDS ORDERED: ACETAMINOPHEN 500 MG TABLET PO ONE (22:30)
[2018-05-12] MEDS ORDERED: ONDANSETRON HCL 4 MG/2 ML VIAL IVP ONE (22:30)
[2018-05-12 23:04] LABS: HEMATOCRIT 26.7 % (36-54); HEMOGLOBIN 9.2 g/dL (14.0-18.0); MEAN CORPUSCULAR HEMOGLOBIN 35 pg (27-31); MEAN CORPUSCULAR HGB CONC 35 % (32-36); MEAN CORPUSCULAR VOLUME 102 fL (79.0-98.0); RED BLOOD CELL COUNT(AUTO) 2.63 MIL/uL (4.2-6.2); RED CELL DISTRIBUTION WIDTH 16.6 % (9.0-15.0); WHITE BLOOD COUNT (AUTO) 2.1 K/uL (4.8-10.8)
[2018-05-12 23:05] LABS: CALCIUM 7.9 mg/dL (8.4-11.0); CREATININE 0.96 mg/dL (0.55-1.30)
[2018-05-12 23:07] LABS: BILIRUBIN,URINE NEGATIVE (NEGATIVE); BLOOD, URINE 2+ (NEGATIVE); CLARITY/URINE CLEAR (CLEAR); COLOR,URINE YELLOW (YELLOW); GLUCOSE,URINE 2+ (NEGATIVE); KETONES,URINE NEGATIVE (NEGATIVE); LEUKOCYTE ESTERASE ,URINE NEGATIVE (NEGATIVE); NITRITE, URINE NEGATIVE (NEGATIVE); PH,URINE 5.5 (5.0-8.0); PROTEIN URINE TRACE (NEGATIVE); UROBILINOGEN,URINE 0.2 (0.2-1.0)
[2018-05-12 23:11] LABS: ALBUMIN 2.6 g/dL (3.4-4.8); TOTAL BILIRUBIN 0.4 mg/dL (0.0-1.0)
[2018-05-12 23:14] LABS: PLATELET COUNT (AUTO) 88 K/uL (130-430)
[2018-05-12 23:19] LABS: BACTERIA,URINE FEW /HPF (None Seen); MUCUS,URINE 1+ /LPF (None Seen); YEAST,URINE Moderate /HPF (None Seen)
[2018-05-12 23:38] LABS: BAND % (MANUAL) 6 % (0-6); BASOPHILS % (MANUAL) 0 % (0-2); EOSINOPHILS % (MANUAL) 0 % (0-7); LYMPHOCYTES % (MANUAL) 14 % (20-46); MONOCYTES % (MANUAL) 6 % (0-11)
[2018-05-12] MEDS ORDERED: VANCOMYCIN HCL 1,000 MG in NS 250 ML IV ONE (23:45)
[2018-05-12] MEDS ORDERED: POTASSIUM CHLORIDE 20 MEQ/PKT PACKET PO ONE (23:45)
[2018-05-12] MEDS ORDERED: PIPERACILLIN/TAZO 3.375 GM in NS 50 ML IV ONE (23:45)
[2018-05-12] MEDS ORDERED: PIPERACILLIN/TAZOBACTAM 3.375 GM/VIAL (ZOSYN) IV ONE (23:52)
[2018-05-12] MEDS ORDERED: VANCOMYCIN HCL 1000 MG/VIAL IV ONE (23:52)
[2018-05-13] MEDS ORDERED: MORPHINE 2 MG/ML INJ. SYRINGE IVP PRN (00:30)
[2018-05-13] MEDS ORDERED: MORPHINE 4 MG/ML INJ. SYRINGE IVP PRN (00:30)
[2018-05-13 00:52] VITALS: BP_SYST 114
[2018-05-13] MEDS: LR 1,000 ML IV SCH ×3 (01:58→23:41)
[2018-05-13] MEDS ORDERED: CEFEPIME 1 GM/VIAL (MAXIPIME) ONE (02:16)
[2018-05-13] MEDS: CEFEPIME 2 GM in D5W 100 ML IV SCH ×3 (04:06→23:36)
[2018-05-13] MEDS: FLUCONAZOLE 200 mg/ NS 100 ML IV SCH (04:45)
[2018-05-13 07:50] VITALS: BP_SYST 131
[2018-05-13] MEDS: MORPHINE SULFATE 10 MG/5 ML ORAL SOL. UDC GT SCH ×2 (09:00→22:53)
[2018-05-13] MEDS: FINASTERIDE 5 MG TABLET (PROSCAR) GT SCH (09:00)
[2018-05-13] MEDS: HYDROcodone/ACETAMIN 10-325 MG TAB GT SCH ×4 (09:00→22:55)
[2018-05-13] MEDS ORDERED: *TPN PER PHARMACY XX PRN (10:00)
[2018-05-13 12:21] VITALS: BP_SYST 130
[2018-05-13] MEDS: VANCOMYCIN HCL 250 MG CAPSULE GT SCH ×3 (13:00→22:55)
[2018-05-13 13:50] LABS: CALCIUM 7.9 mg/dL (8.4-11.0); CREATININE 0.73 mg/dL (0.55-1.30)
[2018-05-13 13:52] LABS: BASOPHILS % (AUTO) 0.8 % (0.0-2.0); EOSINOPHILS % (AUTO) 1.3 % (0.0-4.0); HEMATOCRIT 24.8 % (36-54); HEMOGLOBIN 8.3 g/dL (14.0-18.0); LYMPHOCYTES # (AUTO) 0.2 K/uL (1.0-5.5); LYMPHOCYTES % (AUTO) 6.9 % (20.5-51.5); MEAN CORPUSCULAR HEMOGLOBIN 34 pg (27-31); MEAN CORPUSCULAR HGB CONC 34 % (32-36); MEAN CORPUSCULAR VOLUME 101 fL (79.0-98.0); MONOCYTES # (AUTO) 0.1 K/uL (0.0-1.0); MONOCYTES % (AUTO) 5.5 % (1.7-9.3); NEUTROPHILS # (AUTO) 2.1 K/uL (1.8-7.7); NEUTROPHILS % (AUTO) 85.5 % (40.0-70.0); PLATELET COUNT (AUTO) 64 K/uL (130-430); RED BLOOD CELL COUNT(AUTO) 2.46 MIL/uL (4.2-6.2); RED CELL DISTRIBUTION WIDTH 16.4 % (9.0-15.0)
[2018-05-13 13:53] LABS: ALBUMIN 2.1 g/dL (3.4-4.8); TOTAL BILIRUBIN 0.4 mg/dL (0.0-1.0)
[2018-05-13] MEDS: VANCOMYCIN HCL 500 MG in NS 100 ML IV SCH ×2 (13:55→23:37)
[2018-05-13 13:59] LABS: POTASSIUM 2.7 mmol/L (3.5-5.1)
[2018-05-13 14:14] LABS: WHITE BLOOD COUNT (AUTO) 2.4 K/uL (4.8-10.8)
[2018-05-13] MEDS ORDERED: POTASSIUM CHLORIDE 40 MEQ, MAGNESIUM SULFATE 4 GM in 0.45% NS 250 ML IV ONE (14:30)
[2018-05-13] MEDS ORDERED: K PHOS 30 MM in NS 250 ML IV ONE (14:30)
[2018-05-13] MEDS ORDERED: GLUCOSE 15 GM GEL (in 37.5 GM TUBE) PO PRN ×2 (14:45)
[2018-05-13] MEDS ORDERED: DEXTROSE 50%-WATER 50 ML DISP.SYRIN IVP PRN ×2 (14:45)
[2018-05-13 15:12] VITALS: BP_SYST 136
[2018-05-13] MEDS: metroNIDAZOLE 500 mg/NS 100 ML IV SCH ×2 (15:28→22:35)
[2018-05-13] MEDS ORDERED: FILGRASTIM 300 MCG/ML VIAL SUBCUT SCH (17:00)
[2018-05-13 19:00] VITALS: BP_SYST 134
[2018-05-13 20:00] VITALS: BP_SYST 134
[2018-05-13] MEDS: ONDANSETRON HCL 4 MG/2 ML VIAL IVP PRN (22:19)
[2018-05-13] MEDS: ZOLPIDEM TARTRATE 5 MG TABLET PO PRN (22:56)
[2018-05-13] MEDS: INSULIN REGULAR, HUMAN 100 UNITS/ML, 10 ML VIAL (novoLIN R) SUBCUT PRN (23:33)
[2018-05-14] VITALS (7 sets, daily range): BP systolic 103–138
[2018-05-14] MEDS: FLUCONAZOLE 200 mg/ NS 100 ML IV SCH (02:45)
[2018-05-14] MEDS: metroNIDAZOLE 500 mg/NS 100 ML IV SCH ×3 (05:26→23:33)
[2018-05-14] MEDS: LEVOTHYROXINE SODIUM 0.05 MG TABLET GT SCH (05:41)
[2018-05-14] MEDS: ACETAMINOPHEN 650 MG/20.3 ML UDC GT PRN ×2 (05:41→20:54)
[2018-05-14] MEDS: INSULIN REGULAR, HUMAN 100 UNITS/ML, 10 ML VIAL (novoLIN R) SUBCUT PRN (06:05)
[2018-05-14 06:16] LABS: HEMATOCRIT 25.5 % (36-54); HEMOGLOBIN 8.6 g/dL (14.0-18.0); MEAN CORPUSCULAR HEMOGLOBIN 34 pg (27-31); MEAN CORPUSCULAR HGB CONC 34 % (32-36); MEAN CORPUSCULAR VOLUME 102 fL (79.0-98.0); RED BLOOD CELL COUNT(AUTO) 2.51 MIL/uL (4.2-6.2); RED CELL DISTRIBUTION WIDTH 16.5 % (9.0-15.0); WHITE BLOOD COUNT (AUTO) 2.8 K/uL (4.8-10.8)
[2018-05-14 06:50] LABS: PLATELET COUNT (AUTO) 39 K/uL (130-430)
[2018-05-14 06:57] LABS: CALCIUM 8.1 mg/dL (8.4-11.0); CREATININE 0.84 mg/dL (0.55-1.30); PHOSPHORUS 2.1 mg/dL (2.7-4.5); POTASSIUM 3.1 mmol/L (3.5-5.1); TOTAL BILIRUBIN 0.3 mg/dL (0.0-1.0)
[2018-05-14 08:10] LABS: BAND % (MANUAL) 20 % (0-6)
[2018-05-14 08:11] LABS: BASOPHILS % (MANUAL) 0 % (0-2); EOSINOPHILS % (MANUAL) 0 % (0-7); LYMPHOCYTES % (MANUAL) 13 % (20-46); MONOCYTES % (MANUAL) 6 % (0-11)
[2018-05-14] MEDS: FINASTERIDE 5 MG TABLET (PROSCAR) GT SCH (08:42)
[2018-05-14] MEDS: MORPHINE SULFATE 10 MG/5 ML ORAL SOL. UDC GT SCH ×2 (08:42→21:31)
[2018-05-14] MEDS: HYDROcodone/ACETAMIN 10-325 MG TAB GT SCH ×4 (08:42→21:00)
[2018-05-14] MEDS: VANCOMYCIN HCL 250 MG CAPSULE GT SCH ×4 (08:43→21:32)
[2018-05-14] MEDS: CEFEPIME 2 GM in D5W 100 ML IV SCH (11:04)
[2018-05-14] MEDS: LR 1,000 ML IV SCH (11:12)
[2018-05-14] MEDS: VANCOMYCIN HCL 500 MG in NS 100 ML IV SCH (12:05)
[2018-05-14] MEDS ORDERED: LOPERAMIDE HCL 2 MG CAPSULE PO PRN (15:30)
[2018-05-14] MEDS ORDERED: LOPERAMIDE HCL 2 MG CAPSULE PO ONE (15:30)
[2018-05-14] MEDS ORDERED: K PHOS 30 MM in NS 250 ML IV ONE (16:00)
[2018-05-14] MEDS ORDERED: TPN CENTRAL 0.0001 ML, SODIUM ACETATE 40 MEQ, POTASSIUM CHLORIDE 20 MEQ, K PHOS 12 MM, ... IV SCH ×10 (18:00)
[2018-05-14] MEDS ORDERED: FUROSEMIDE 40 MG/4 ML VIAL IVP ONE (21:30)
[2018-05-14] MEDS: VANCOMYCIN HCL 1,000 MG in NS 250 ML IV SCH (21:32)
[2018-05-14 21:54] LABS: CALCIUM 7.6 mg/dL (8.4-11.0); CREATININE 0.95 mg/dL (0.55-1.30)
[2018-05-14 22:00] LABS: HEMOGLOBIN 7.4 g/dL (14.0-18.0); MEAN CORPUSCULAR HEMOGLOBIN 34 pg (27-31); MEAN CORPUSCULAR HGB CONC 34 % (32-36); MEAN CORPUSCULAR VOLUME 101 fL (79.0-98.0); RED BLOOD CELL COUNT(AUTO) 2.14 MIL/uL (4.2-6.2); RED CELL DISTRIBUTION WIDTH 16.6 % (9.0-15.0); WHITE BLOOD COUNT (AUTO) 3.2 K/uL (4.8-10.8)
[2018-05-14] MEDS: IPRATROPIUM/ALBUTEROL SULFATE 3 ML AMPUL.NEB INH SCH (22:00)
[2018-05-14 22:18] LABS: HEMATOCRIT 21.6 % (36-54)
[2018-05-14 22:20] LABS: PLATELET COUNT (AUTO) 14 K/uL (130-430)
[2018-05-14 22:24] LABS: POTASSIUM 2.9 mmol/L (3.5-5.1)
[2018-05-14 22:49] LABS: BAND % (MANUAL) 33 % (0-6); BASOPHILS % (MANUAL) 0 % (0-2); EOSINOPHILS % (MANUAL) 0 % (0-7); LYMPHOCYTES % (MANUAL) 10 % (20-46); MONOCYTES % (MANUAL) 5 % (0-11)
[2018-05-14] MEDS ORDERED: POTASSIUM CHLORIDE 40 MEQ in D5W 250 ML IV ONE (23:30)
[2018-05-14] MEDS ORDERED: KCL 40 mEq in 100 mL (PREMIX) 100 ML IV ONE (23:46)
[2018-05-14] MEDS: ZOLPIDEM TARTRATE 5 MG TABLET PO PRN (23:50)
[2018-05-15] VITALS (24 sets, daily range): BP systolic 90–153
[2018-05-15] MEDS: CEFEPIME 2 GM in D5W 100 ML IV SCH ×2 (00:25→11:48)
[2018-05-15] MEDS: FLUCONAZOLE 200 mg/ NS 100 ML IV SCH (03:02)
[2018-05-15] MEDS: ACETAMINOPHEN 650 MG/20.3 ML UDC GT PRN ×2 (04:35→17:10)
[2018-05-15 06:20] LABS: BASOPHILS % (AUTO) 0.2 % (0.0-2.0); EOSINOPHILS % (AUTO) 0.1 % (0.0-4.0); HEMATOCRIT 24.3 % (36-54); HEMOGLOBIN 8.3 g/dL (14.0-18.0); LYMPHOCYTES # (AUTO) 0.2 K/uL (1.0-5.5); LYMPHOCYTES % (AUTO) 5.2 % (20.5-51.5); MEAN CORPUSCULAR HEMOGLOBIN 34 pg (27-31); MEAN CORPUSCULAR HGB CONC 34 % (32-36); MEAN CORPUSCULAR VOLUME 98 fL (79.0-98.0); MONOCYTES # (AUTO) 0.1 K/uL (0.0-1.0); MONOCYTES % (AUTO) 3.8 % (1.7-9.3); NEUTROPHILS # (AUTO) 3.3 K/uL (1.8-7.7); NEUTROPHILS % (AUTO) 90.7 % (40.0-70.0); RED BLOOD CELL COUNT(AUTO) 2.47 MIL/uL (4.2-6.2); RED CELL DISTRIBUTION WIDTH 17.7 % (9.0-15.0); WHITE BLOOD COUNT (AUTO) 3.6 K/uL (4.8-10.8)
[2018-05-15] MEDS: metroNIDAZOLE 500 mg/NS 100 ML IV SCH ×3 (06:39→22:28)
[2018-05-15] MEDS: LEVOTHYROXINE SODIUM 0.05 MG TABLET GT SCH (06:39)
[2018-05-15 06:41] LABS: INR 1.1 (0.80-1.20); PROTHROMBIN TIME 11.5 SECS (9.5-12.5)
[2018-05-15 06:51] LABS: ALBUMIN 1.8 g/dL (3.4-4.8); CALCIUM 7.7 mg/dL (8.4-11.0); CREATININE 1.06 mg/dL (0.55-1.30); PHOSPHORUS 3.2 mg/dL (2.7-4.5); TOTAL BILIRUBIN 0.5 mg/dL (0.0-1.0)
[2018-05-15 06:55] LABS: POTASSIUM 2.9 mmol/L (3.5-5.1)
[2018-05-15 07:07] LABS: PLATELET COUNT (AUTO) 43 K/uL (130-430)
[2018-05-15] MEDS ORDERED: POTASSIUM CHLORIDE 40 MEQ in NS 250 ML IV ONE ×3 (07:15)
[2018-05-15] MEDS ORDERED: FUROSEMIDE 20 MG/2 ML VIAL IVP ONE (08:15)
[2018-05-15] MEDS: IPRATROPIUM/ALBUTEROL SULFATE 3 ML AMPUL.NEB INH SCH ×5 (08:22→23:27)
[2018-05-15] MEDS ORDERED: POTASSIUM CHLORIDE 20 MEQ/PKT PACKET PO ONE (09:00)
[2018-05-15] MEDS: VANCOMYCIN HCL 1,000 MG in NS 250 ML IV SCH ×2 (09:38→21:29)
[2018-05-15] MEDS: HYDROcodone/ACETAMIN 10-325 MG TAB GT SCH ×4 (09:40→21:51)
[2018-05-15] MEDS: VANCOMYCIN HCL 250 MG CAPSULE GT SCH ×4 (09:40→21:28)
[2018-05-15] MEDS: FINASTERIDE 5 MG TABLET (PROSCAR) GT SCH (09:40)
[2018-05-15] MEDS: MORPHINE SULFATE 10 MG/5 ML ORAL SOL. UDC GT SCH ×2 (09:40→21:28)
[2018-05-15] MEDS: ONDANSETRON HCL 4 MG/2 ML VIAL IVP PRN (10:19)
[2018-05-15] MEDS ORDERED: POTASSIUM CHLORIDE 40 MEQ, MAGNESIUM SULFATE 4 GM, LIDOCAINE JECT 2% PF 100 MG 50 MG in... IV ONE ×4 (11:00)
[2018-05-15] MEDS: INSULIN REGULAR, HUMAN 100 UNITS/ML, 10 ML VIAL (novoLIN R) SUBCUT PRN ×2 (12:05→17:10)
[2018-05-15] MEDS ORDERED: COMMUNICATION ORDER XX ONE ×2 (17:00→18:00)
[2018-05-15] MEDS: MICAFUNGIN SODIUM 100 MG in NS 100 ML IV SCH (17:12)
[2018-05-15] MEDS ORDERED: K PHOS IV SCH ×11 (18:00)
[2018-05-15] MEDS ORDERED: SODIUM ACETATE IV SCH ×11 (18:00)
[2018-05-15] MEDS ORDERED: [UNRECOGNIZED DRUG - OTHER] IV SCH ×11 (18:00)
[2018-05-15] MEDS ORDERED: TPN CENTRAL IV SCH ×11 (18:00)
[2018-05-15] MEDS ORDERED: POTASSIUM CHLORIDE IV SCH ×11 (18:00)
[2018-05-15] MEDS: D5/0.45 NS 1,000 ML IV SCH (19:31)
[2018-05-15 20:17] LABS: BILIRUBIN,URINE NEGATIVE (NEGATIVE); BLOOD, URINE 2+ (NEGATIVE); COLOR,URINE YELLOW (YELLOW); GLUCOSE,URINE NEGATIVE (NEGATIVE); KETONES,URINE NEGATIVE (NEGATIVE); LEUKOCYTE ESTERASE ,URINE NEGATIVE (NEGATIVE); NITRITE, URINE NEGATIVE (NEGATIVE); PH,URINE 5.5 (5.0-8.0); PROTEIN URINE 1+ (NEGATIVE); UROBILINOGEN,URINE 0.2 (0.2-1.0)
[2018-05-15 20:27] LABS: CLARITY/URINE HAZY (CLEAR)
[2018-05-15 20:29] LABS: WBC,URINE 0-3 /HPF (0-3)
[2018-05-15 20:30] LABS: BACTERIA,URINE FEW /HPF (None Seen); FINE GRANULAR CASTS,URINE 0-10 /LPF (None Seen); MUCUS,URINE None Seen /LPF (None Seen)
[2018-05-16] VITALS (24 sets, daily range): BP systolic 102–148
[2018-05-16] MEDS ORDERED: DIPHENHYDRAMINE HCL 12.5 MG/5 ML UDC ONE (00:20)
[2018-05-16] MEDS: DIPHENHYDRAMINE HCL 12.5 MG/5 ML UDC PO PRN ×2 (00:23→23:41)
[2018-05-16] MEDS: CEFEPIME 2 GM in D5W 100 ML IV SCH ×3 (00:42→23:41)
[2018-05-16] MEDS: IPRATROPIUM/ALBUTEROL SULFATE 3 ML AMPUL.NEB INH SCH ×5 (06:00→23:29)
[2018-05-16] MEDS: metroNIDAZOLE 500 mg/NS 100 ML IV SCH ×3 (06:14→22:07)
[2018-05-16] MEDS: LEVOTHYROXINE SODIUM 0.05 MG TABLET GT SCH (06:15)
[2018-05-16 08:04] LABS: ALBUMIN 1.8 g/dL (3.4-4.8); CALCIUM 7.8 mg/dL (8.4-11.0); CREATININE 0.95 mg/dL (0.55-1.30); PHOSPHORUS 2.3 mg/dL (2.7-4.5); TOTAL BILIRUBIN 0.7 mg/dL (0.0-1.0)
[2018-05-16 08:06] LABS: POTASSIUM 2.9 mmol/L (3.5-5.1)
[2018-05-16 08:10] LABS: INR 1.3 (0.80-1.20); PROTHROMBIN TIME 13.5 SECS (9.5-12.5)
[2018-05-16 08:13] LABS: HEMATOCRIT 22.4 % (36-54); HEMOGLOBIN 7.4 g/dL (14.0-18.0); MEAN CORPUSCULAR HEMOGLOBIN 32 pg (27-31); MEAN CORPUSCULAR HGB CONC 33 % (32-36); MEAN CORPUSCULAR VOLUME 98 fL (79.0-98.0); RED BLOOD CELL COUNT(AUTO) 2.29 MIL/uL (4.2-6.2); RED CELL DISTRIBUTION WIDTH 17.7 % (9.0-15.0); WHITE BLOOD COUNT (AUTO) 2.6 K/uL (4.8-10.8)
[2018-05-16 08:26] LABS: PLATELET COUNT (AUTO) 3 K/uL (130-430)
[2018-05-16 08:35] LABS: BAND % (MANUAL) 24 % (0-6); BASOPHILS % (MANUAL) 0 % (0-2); EOSINOPHILS % (MANUAL) 0 % (0-7); LYMPHOCYTES % (MANUAL) 13 % (20-46); MONOCYTES % (MANUAL) 4 % (0-11)
[2018-05-16] MEDS ORDERED: POTASSIUM CHLORIDE 40 MEQ in NS 250 ML IV ONE (09:00)
[2018-05-16] MEDS: FINASTERIDE 5 MG TABLET (PROSCAR) GT SCH (09:11)
[2018-05-16] MEDS: HYDROcodone/ACETAMIN 10-325 MG TAB GT SCH ×4 (09:11→20:39)
[2018-05-16] MEDS: MORPHINE SULFATE 10 MG/5 ML ORAL SOL. UDC GT SCH ×2 (09:12→20:39)
[2018-05-16] MEDS ORDERED: POTASSIUM CHLORIDE 40 MEQ in D5W 250 ML IV ONE ×2 (10:00→14:00)
[2018-05-16] MEDS ORDERED: FILGRASTIM 480 MCG/VIAL SUBCUT ONE (11:30)
[2018-05-16] MEDS ORDERED: DEXAMETHASONE SOD PHOSPHATE 10 MG/ML VIAL IVP SCH (12:30)
[2018-05-16] MEDS ORDERED: *PPN PER PHARMACY XX PRN (13:00)
[2018-05-16] MEDS ORDERED: DEXTROSE 50% JECT 50 ML DISP.SYRIN IVP PRN (13:00)
[2018-05-16] MEDS ORDERED: K PHOS 30 MM in NS 250 ML IV ONE (14:00)
[2018-05-16] MEDS: BISMUTH SUBSALICYLATE 240 ML BOTTLE GT SCH ×2 (14:51→20:38)
[2018-05-16] MEDS: D5W IV SCH (14:52)
[2018-05-16] MEDS: DEXAMETHASONE SOD PHOSPHATE IV SCH (14:52)
[2018-05-16] MEDS: SUCRALFATE 1 GM/10 ML UDC GT SCH ×2 (17:12→23:41)
[2018-05-16] MEDS: MICAFUNGIN SODIUM 100 MG in NS 100 ML IV SCH (17:13)
[2018-05-16] MEDS: D5/0.45 NS 1,000 ML IV SCH (17:13)
[2018-05-16] MEDS ORDERED: POTASSIUM CHLORIDE IV SCH ×11 (18:00)
[2018-05-16] MEDS ORDERED: TPN PERIPHERAL IV SCH ×11 (18:00)
[2018-05-16] MEDS ORDERED: [UNRECOGNIZED DRUG - OTHER] IV SCH ×11 (18:00)
[2018-05-16] MEDS ORDERED: SODIUM ACETATE IV SCH ×11 (18:00)
[2018-05-16] MEDS: INSULIN REGULAR, HUMAN 100 UNITS/ML, 10 ML VIAL (novoLIN R) SUBCUT PRN (20:56)
[2018-05-17] VITALS (24 sets, daily range): BP systolic 114–154
[2018-05-17] MEDS: metroNIDAZOLE 500 mg/NS 100 ML IV SCH ×3 (05:24→21:24)
[2018-05-17] MEDS: SUCRALFATE 1 GM/10 ML UDC GT SCH ×3 (05:24→17:17)
[2018-05-17] MEDS: LEVOTHYROXINE SODIUM 0.05 MG TABLET GT SCH (06:10)
[2018-05-17 06:13] LABS: BASOPHILS % (AUTO) 0.2 % (0.0-2.0); HEMATOCRIT 24.9 % (36-54); HEMOGLOBIN 8.4 g/dL (14.0-18.0); LYMPHOCYTES # (AUTO) 0.6 K/uL (1.0-5.5); LYMPHOCYTES % (AUTO) 7.4 % (20.5-51.5); MEAN CORPUSCULAR HEMOGLOBIN 32 pg (27-31); MEAN CORPUSCULAR HGB CONC 34 % (32-36); MEAN CORPUSCULAR VOLUME 96 fL (79.0-98.0); MONOCYTES # (AUTO) 0.2 K/uL (0.0-1.0); MONOCYTES % (AUTO) 2.6 % (1.7-9.3); NEUTROPHILS # (AUTO) 7.4 K/uL (1.8-7.7); NEUTROPHILS % (AUTO) 89.8 % (40.0-70.0); RED CELL DISTRIBUTION WIDTH 17.9 % (9.0-15.0); WHITE BLOOD COUNT (AUTO) 8.3 K/uL (4.8-10.8)
[2018-05-17] MEDS: INSULIN REGULAR, HUMAN 100 UNITS/ML, 10 ML VIAL (novoLIN R) SUBCUT PRN ×4 (06:13→21:09)
[2018-05-17 06:31] LABS: INR 1.3 (0.80-1.20); PROTHROMBIN TIME 13.4 SECS (9.5-12.5)
[2018-05-17 06:38] LABS: ALBUMIN 1.8 g/dL (3.4-4.8); CALCIUM 8.3 mg/dL (8.4-11.0); CREATININE 1.21 mg/dL (0.55-1.30); PHOSPHORUS 2.6 mg/dL (2.7-4.5); POTASSIUM 3.6 mmol/L (3.5-5.1); TOTAL BILIRUBIN 0.7 mg/dL (0.0-1.0)
[2018-05-17 06:56] LABS: PLATELET COUNT (AUTO) 19 K/uL (130-430)
[2018-05-17] MEDS: IPRATROPIUM/ALBUTEROL SULFATE 3 ML AMPUL.NEB INH SCH ×5 (07:41→23:30)
[2018-05-17] MEDS: BISMUTH SUBSALICYLATE 240 ML BOTTLE GT SCH ×3 (09:01→21:12)
[2018-05-17] MEDS: FINASTERIDE 5 MG TABLET (PROSCAR) GT SCH (09:02)
[2018-05-17] MEDS: HYDROcodone/ACETAMIN 10-325 MG TAB GT SCH ×4 (09:02→21:14)
[2018-05-17] MEDS: MORPHINE SULFATE 10 MG/5 ML ORAL SOL. UDC GT SCH ×2 (10:12→21:13)
[2018-05-17] MEDS ORDERED: D5W 1,000 ML IV SCH (11:45)
[2018-05-17] MEDS: CEFEPIME 2 GM in D5W 100 ML IV SCH (12:21)
[2018-05-17] MEDS: DEXAMETHASONE SOD PHOSPHATE IV SCH (17:16)
[2018-05-17] MEDS: D5W IV SCH (17:16)
[2018-05-17] MEDS: D5W 1,000 ML IV SCH (17:19)
[2018-05-17] MEDS: MICAFUNGIN SODIUM 100 MG in NS 100 ML IV SCH (17:27)
[2018-05-17] MEDS ORDERED: POTASSIUM ACETATE IV SCH ×12 (18:00)
[2018-05-17] MEDS ORDERED: TPN PERIPHERAL IV SCH ×12 (18:00)
[2018-05-17] MEDS ORDERED: SODIUM ACETATE IV SCH ×12 (18:00)
[2018-05-17] MEDS ORDERED: [UNRECOGNIZED DRUG - OTHER] IV SCH ×12 (18:00)
[2018-05-18] VITALS (24 sets, daily range): BP systolic 117–143
[2018-05-18] MEDS: SUCRALFATE 1 GM/10 ML UDC GT SCH ×5 (00:02→23:03)
[2018-05-18] MEDS: CEFEPIME 2 GM in D5W 100 ML IV SCH ×3 (00:02→23:03)
[2018-05-18] MEDS: DIPHENHYDRAMINE HCL 12.5 MG/5 ML UDC PO PRN (00:19)
[2018-05-18] MEDS: metroNIDAZOLE 500 mg/NS 100 ML IV SCH ×3 (05:42→21:02)
[2018-05-18] MEDS: LEVOTHYROXINE SODIUM 0.05 MG TABLET GT SCH (06:31)
[2018-05-18] MEDS: INSULIN REGULAR, HUMAN 100 UNITS/ML, 10 ML VIAL (novoLIN R) SUBCUT PRN ×4 (06:32→21:00)
[2018-05-18 06:49] LABS: BASOPHILS % (AUTO) 0.3 % (0.0-2.0); HEMOGLOBIN 7.8 g/dL (14.0-18.0); LYMPHOCYTES # (AUTO) 0.6 K/uL (1.0-5.5); LYMPHOCYTES % (AUTO) 10.5 % (20.5-51.5); MEAN CORPUSCULAR HEMOGLOBIN 33 pg (27-31); MEAN CORPUSCULAR HGB CONC 34 % (32-36); MEAN CORPUSCULAR VOLUME 96 fL (79.0-98.0); MONOCYTES # (AUTO) 0.1 K/uL (0.0-1.0); MONOCYTES % (AUTO) 1.3 % (1.7-9.3); NEUTROPHILS % (AUTO) 87.9 % (40.0-70.0); RED BLOOD CELL COUNT(AUTO) 2.39 MIL/uL (4.2-6.2); RED CELL DISTRIBUTION WIDTH 18.1 % (9.0-15.0); WHITE BLOOD COUNT (AUTO) 5.7 K/uL (4.8-10.8)
[2018-05-18] MEDS: IPRATROPIUM/ALBUTEROL SULFATE 3 ML AMPUL.NEB INH SCH ×5 (07:05→23:26)
[2018-05-18 07:06] LABS: PLATELET COUNT (AUTO) 7 K/uL (130-430)
[2018-05-18 07:18] LABS: ALBUMIN 1.7 g/dL (3.4-4.8); CALCIUM 8.1 mg/dL (8.4-11.0); CREATININE 1.27 mg/dL (0.55-1.30); PHOSPHORUS 3.4 mg/dL (2.7-4.5); POTASSIUM 4.3 mmol/L (3.5-5.1); TOTAL BILIRUBIN 0.6 mg/dL (0.0-1.0)
[2018-05-18] MEDS: BISMUTH SUBSALICYLATE 240 ML BOTTLE GT SCH ×3 (08:53→20:58)
[2018-05-18] MEDS: MORPHINE SULFATE 10 MG/5 ML ORAL SOL. UDC GT SCH ×2 (08:53→20:58)
[2018-05-18] MEDS: FINASTERIDE 5 MG TABLET (PROSCAR) GT SCH (08:53)
[2018-05-18] MEDS: HYDROcodone/ACETAMIN 10-325 MG TAB GT SCH ×4 (08:54→20:58)
[2018-05-18] MEDS: DEXAMETHASONE SOD PHOSPHATE IV SCH (14:02)
[2018-05-18] MEDS: D5W IV SCH (14:02)
[2018-05-18] MEDS: D5W 1,000 ML IV SCH (17:02)
[2018-05-18] MEDS: MICAFUNGIN SODIUM 100 MG in NS 100 ML IV SCH (17:02)
[2018-05-18] MEDS ORDERED: POTASSIUM ACETATE IV SCH ×12 (18:00)
[2018-05-18] MEDS ORDERED: TPN PERIPHERAL IV SCH ×12 (18:00)
[2018-05-18] MEDS ORDERED: SODIUM ACETATE IV SCH ×12 (18:00)
[2018-05-18] MEDS ORDERED: [UNRECOGNIZED DRUG - OTHER] IV SCH ×12 (18:00)
[2018-05-19] VITALS (26 sets, daily range): BP systolic 86–145
[2018-05-19] MEDS: DIPHENHYDRAMINE HCL 12.5 MG/5 ML UDC PO PRN (00:49)
[2018-05-19] MEDS: SUCRALFATE 1 GM/10 ML UDC GT SCH ×4 (06:09→23:44)
[2018-05-19] MEDS: LEVOTHYROXINE SODIUM 0.05 MG TABLET GT SCH (06:09)
[2018-05-19] MEDS: metroNIDAZOLE 500 mg/NS 100 ML IV SCH ×3 (06:09→21:58)
[2018-05-19] MEDS: INSULIN REGULAR, HUMAN 100 UNITS/ML, 10 ML VIAL (novoLIN R) SUBCUT PRN ×4 (06:12→23:43)
[2018-05-19] MEDS: IPRATROPIUM/ALBUTEROL SULFATE 3 ML AMPUL.NEB INH SCH ×5 (06:13→23:34)
[2018-05-19 06:19] LABS: BASOPHILS % (AUTO) 0.3 % (0.0-2.0); HEMOGLOBIN 7.3 g/dL (14.0-18.0); LYMPHOCYTES # (AUTO) 0.5 K/uL (1.0-5.5); LYMPHOCYTES % (AUTO) 10.7 % (20.5-51.5); MEAN CORPUSCULAR HEMOGLOBIN 33 pg (27-31); MEAN CORPUSCULAR HGB CONC 34 % (32-36); MEAN CORPUSCULAR VOLUME 95 fL (79.0-98.0); MONOCYTES # (AUTO) 0.1 K/uL (0.0-1.0); MONOCYTES % (AUTO) 1.7 % (1.7-9.3); NEUTROPHILS # (AUTO) 4.3 K/uL (1.8-7.7); NEUTROPHILS % (AUTO) 87.3 % (40.0-70.0); RED BLOOD CELL COUNT(AUTO) 2.23 MIL/uL (4.2-6.2); RED CELL DISTRIBUTION WIDTH 17.9 % (9.0-15.0); WHITE BLOOD COUNT (AUTO) 4.9 K/uL (4.8-10.8)
[2018-05-19 06:41] LABS: ALBUMIN 1.9 g/dL (3.4-4.8); CALCIUM 7.9 mg/dL (8.4-11.0); CREATININE 1.01 mg/dL (0.55-1.30); PHOSPHORUS 3.4 mg/dL (2.7-4.5); POTASSIUM 4.7 mmol/L (3.5-5.1); TOTAL BILIRUBIN 0.7 mg/dL (0.0-1.0)
[2018-05-19 07:24] LABS: HEMATOCRIT 21.2 % (36-54)
[2018-05-19 08:00] LABS: PLATELET COUNT (AUTO) 32 K/uL (130-430)
[2018-05-19] MEDS: BISMUTH SUBSALICYLATE 240 ML BOTTLE GT SCH ×3 (08:32→21:00)
[2018-05-19] MEDS: HYDROcodone/ACETAMIN 10-325 MG TAB GT SCH ×4 (08:32→21:00)
[2018-05-19] MEDS: FINASTERIDE 5 MG TABLET (PROSCAR) GT SCH (08:32)
[2018-05-19] MEDS: MORPHINE SULFATE 10 MG/5 ML ORAL SOL. UDC GT SCH ×2 (08:35→21:00)
[2018-05-19 09:12] LABS: BASOPHILS % (AUTO) 0.2 % (0.0-2.0); HEMATOCRIT 24.2 % (36-54); HEMOGLOBIN 8.2 g/dL (14.0-18.0); LYMPHOCYTES # (AUTO) 0.6 K/uL (1.0-5.5); LYMPHOCYTES % (AUTO) 7.2 % (20.5-51.5); MEAN CORPUSCULAR HEMOGLOBIN 33 pg (27-31); MEAN CORPUSCULAR HGB CONC 34 % (32-36); MEAN CORPUSCULAR VOLUME 96 fL (79.0-98.0); MONOCYTES # (AUTO) 0.3 K/uL (0.0-1.0); MONOCYTES % (AUTO) 3.2 % (1.7-9.3); NEUTROPHILS % (AUTO) 89.4 % (40.0-70.0); RED BLOOD CELL COUNT(AUTO) 2.52 MIL/uL (4.2-6.2); RED CELL DISTRIBUTION WIDTH 17.6 % (9.0-15.0)
[2018-05-19 10:05] LABS: PLATELET COUNT (AUTO) 38 K/uL (130-430); WHITE BLOOD COUNT (AUTO) 7.9 K/uL (4.8-10.8)
[2018-05-19] MEDS: CEFEPIME 2 GM in D5W 100 ML IV SCH ×2 (11:23→23:37)
[2018-05-19] MEDS: D5W IV SCH (15:03)
[2018-05-19] MEDS: DEXAMETHASONE SOD PHOSPHATE IV SCH (15:03)
[2018-05-19] MEDS ORDERED: MIDAZOLAM HCL 5 MG/5 ML VIAL ONE (15:55)
[2018-05-19] MEDS ORDERED: SUCCINYLCHOLINE CHLORIDE 20 MG/ML(QUELICIN) IVP ONE (16:00)
[2018-05-19] MEDS: MICAFUNGIN SODIUM 100 MG in NS 100 ML IV SCH (17:52)
[2018-05-19] MEDS: D5W 1,000 ML IV SCH (17:55)
[2018-05-19] MEDS ORDERED: POTASSIUM CHLORIDE IV SCH ×10 (18:00)
[2018-05-19] MEDS ORDERED: [UNRECOGNIZED DRUG - OTHER] IV SCH ×10 (18:00)
[2018-05-19] MEDS ORDERED: K PHOS IV SCH ×10 (18:00)
[2018-05-19] MEDS ORDERED: TPN PERIPHERAL IV SCH ×10 (18:00)
[2018-05-19] MEDS: LORazepam 2 MG/ML VIAL IVP PRN ×3 (18:06→20:46)
[2018-05-19] MEDS ORDERED: SODIUM BICARBONATE 8.4% JECT 50 MEQ/50 ML SYRINGE IVP ONE ×2 (18:15→18:45)
[2018-05-19] MEDS ORDERED: NACL 0.9% 1,000 ML IV ONE (18:15)
[2018-05-19] MEDS: NOREPINEPHRINE BITARTRATE 4 MG in NS 246 ML IV PRN (18:49)
[2018-05-19] MEDS: ACETAMINOPHEN 650 MG/20.3 ML UDC GT PRN (19:38)
[2018-05-19] MEDS ORDERED: INSULIN REGULAR, HUMAN 100 UNITS/ML, 10 ML VIAL SUBCUT ONE (19:45)
[2018-05-19] MEDS ORDERED: INSULIN REGULAR, HUMAN 100 UNITS/ML, 10 ML VIAL IVP ONE (19:45)
[2018-05-20] VITALS (30 sets, daily range): BP systolic 89–146
[2018-05-20] MEDS: LORazepam 2 MG/ML VIAL IVP PRN ×6 (02:50→21:39)
[2018-05-20] MEDS: SUCRALFATE 1 GM/10 ML UDC GT SCH ×3 (05:56→17:45)
[2018-05-20] MEDS: LEVOTHYROXINE SODIUM 0.05 MG TABLET GT SCH (06:11)
[2018-05-20] MEDS: metroNIDAZOLE 500 mg/NS 100 ML IV SCH ×3 (06:12→21:38)
[2018-05-20] MEDS: IPRATROPIUM/ALBUTEROL SULFATE 3 ML AMPUL.NEB INH SCH ×5 (06:46→23:06)
[2018-05-20 06:54] LABS: ALBUMIN 1.7 g/dL (3.4-4.8); CALCIUM 7.4 mg/dL (8.4-11.0); CREATININE 1.37 mg/dL (0.55-1.30); PHOSPHORUS 4.2 mg/dL (2.7-4.5); POTASSIUM 5.2 mmol/L (3.5-5.1); TOTAL BILIRUBIN 1.6 mg/dL (0.0-1.0)
[2018-05-20 07:15] LABS: BASOPHILS % (AUTO) 0.3 % (0.0-2.0); EOSINOPHILS % (AUTO) 0.1 % (0.0-4.0); HEMATOCRIT 24.1 % (36-54); HEMOGLOBIN 8.1 g/dL (14.0-18.0); LYMPHOCYTES # (AUTO) 0.9 K/uL (1.0-5.5); LYMPHOCYTES % (AUTO) 7.6 % (20.5-51.5); MEAN CORPUSCULAR HEMOGLOBIN 32 pg (27-31); MEAN CORPUSCULAR HGB CONC 34 % (32-36); MEAN CORPUSCULAR VOLUME 94 fL (79.0-98.0); MONOCYTES # (AUTO) 0.2 K/uL (0.0-1.0); NEUTROPHILS # (AUTO) 11.1 K/uL (1.8-7.7); RED BLOOD CELL COUNT(AUTO) 2.57 MIL/uL (4.2-6.2); WHITE BLOOD COUNT (AUTO) 12.2 K/uL (4.8-10.8)
[2018-05-20 07:30] LABS: PLATELET COUNT (AUTO) 11 K/uL (130-430)
[2018-05-20] MEDS: NOREPINEPHRINE BITARTRATE 4 MG in NS 246 ML IV PRN (08:04)
[2018-05-20] MEDS: FINASTERIDE 5 MG TABLET (PROSCAR) GT SCH (09:20)
[2018-05-20] MEDS: BISMUTH SUBSALICYLATE 240 ML BOTTLE GT SCH ×3 (09:20→20:54)
[2018-05-20] MEDS: HYDROcodone/ACETAMIN 10-325 MG TAB GT SCH ×4 (09:21→20:53)
[2018-05-20] MEDS: MORPHINE SULFATE 10 MG/5 ML ORAL SOL. UDC GT SCH ×2 (09:21→20:54)
[2018-05-20] MEDS ORDERED: MORPHINE 4 MG/ML INJ. SYRINGE IVP PRN (11:45)
[2018-05-20] MEDS: CEFEPIME 2 GM in D5W 100 ML IV SCH (13:22)
[2018-05-20] MEDS: INSULIN REGULAR, HUMAN 100 UNITS/ML, 10 ML VIAL (novoLIN R) SUBCUT PRN ×2 (13:26→18:07)
[2018-05-20] MEDS: MORPHINE 2 MG/ML INJ. SYRINGE IVP PRN ×2 (16:14→18:09)
[2018-05-20] MEDS ORDERED: POTASSIUM CHLORIDE IV SCH ×20 (16:29→18:00)
[2018-05-20] MEDS ORDERED: K PHOS IV SCH ×20 (16:29→18:00)
[2018-05-20] MEDS ORDERED: [UNRECOGNIZED DRUG - OTHER] IV SCH ×10 (16:29)
[2018-05-20] MEDS ORDERED: TPN PERIPHERAL IV SCH ×20 (16:29→18:00)
[2018-05-20] MEDS: D5W 1,000 ML IV SCH (17:45)
[2018-05-20] MEDS: MICAFUNGIN SODIUM 100 MG in NS 100 ML IV SCH (17:49)
[2018-05-20] MEDS ORDERED: [UNRECOGNIZED DRUG - OTHER] IV SCH ×10 (18:00)
[2018-05-20] MEDS: ACETAMINOPHEN 650 MG/20.3 ML UDC GT PRN (19:40)
[2018-05-20] MEDS: IPRATROPIUM/ALBUTEROL SULFATE 3 ML AMPUL.NEB INH PRN (21:00)
[2018-05-21] VITALS (33 sets, daily range): BP systolic 89–153
[2018-05-21] MEDS: SUCRALFATE 1 GM/10 ML UDC GT SCH ×4 (00:13→17:28)
[2018-05-21] MEDS: CEFEPIME 2 GM in D5W 100 ML IV SCH ×2 (00:13→11:34)
[2018-05-21] MEDS: INSULIN REGULAR, HUMAN 100 UNITS/ML, 10 ML VIAL (novoLIN R) SUBCUT PRN ×3 (00:18→17:32)
[2018-05-21] MEDS: IPRATROPIUM/ALBUTEROL SULFATE 3 ML AMPUL.NEB INH SCH ×6 (03:48→23:14)
[2018-05-21] MEDS: metroNIDAZOLE 500 mg/NS 100 ML IV SCH (05:18)
[2018-05-21 06:06] LABS: ALBUMIN 1.7 g/dL (3.4-4.8); BILIRUBIN,DIRECT 1.2 mg/dL (0.0-0.3); CALCIUM 7.1 mg/dL (8.4-11.0); CREATININE 2.05 mg/dL (0.55-1.30); PHOSPHORUS 4.6 mg/dL (2.7-4.5); POTASSIUM 5.6 mmol/L (3.5-5.1)
[2018-05-21 06:08] LABS: INR 1.5 (0.80-1.20)
[2018-05-21] MEDS: LORazepam 2 MG/ML VIAL IVP PRN ×5 (06:12→19:53)
[2018-05-21] MEDS: LEVOTHYROXINE SODIUM 0.05 MG TABLET GT SCH (06:22)
[2018-05-21 06:29] LABS: MEAN CORPUSCULAR HEMOGLOBIN 33 pg (27-31); MEAN CORPUSCULAR HGB CONC 35 % (32-36); MEAN CORPUSCULAR VOLUME 94 fL (79.0-98.0); RED CELL DISTRIBUTION WIDTH 16.8 % (9.0-15.0); WHITE BLOOD COUNT (AUTO) 17.8 K/uL (4.8-10.8)
[2018-05-21 06:32] LABS: HEMATOCRIT 22.6 % (36-54); HEMOGLOBIN 7.8 g/dL (14.0-18.0); PLATELET COUNT (AUTO) 20 K/uL (130-430)
[2018-05-21 06:42] LABS: BAND % (MANUAL) 5 % (0-6); BASOPHILS % (MANUAL) 0 % (0-2); CORRECTED WHITE BLOOD COUNT 16.8 K/uL (4.5-11.0); EOSINOPHILS % (MANUAL) 0 % (0-7); LYMPHOCYTES % (MANUAL) 3 % (20-46); MONOCYTES % (MANUAL) 1 % (0-11)
[2018-05-21] MEDS: HYDROcodone/ACETAMIN 10-325 MG TAB GT SCH (08:04)
[2018-05-21] MEDS: MORPHINE 2 MG/ML INJ. SYRINGE IVP PRN ×3 (08:05→11:51)
[2018-05-21] MEDS: BISMUTH SUBSALICYLATE 240 ML BOTTLE GT SCH ×3 (08:06→20:52)
[2018-05-21] MEDS: MORPHINE SULFATE 10 MG/5 ML ORAL SOL. UDC GT SCH ×2 (08:06→20:48)
[2018-05-21] MEDS: FINASTERIDE 5 MG TABLET (PROSCAR) GT SCH (08:07)
[2018-05-21] MEDS ORDERED: PHYTONADIONE 5 MG TABLET GT ONE (10:15)
[2018-05-21] MEDS ORDERED: SODIUM POLYSTYRENE SULFONATE 15 GM/60 ML UDBTL PO ONE (10:30)
[2018-05-21] MEDS: NOREPINEPHRINE BITARTRATE 4 MG in NS 246 ML IV PRN ×2 (11:34→22:05)
[2018-05-21] MEDS ORDERED: PHYTONADIONE 10 MG/ML AMP GT ONE (13:00)
[2018-05-21] MEDS: MICAFUNGIN SODIUM 100 MG in NS 100 ML IV SCH (17:28)
[2018-05-21] MEDS: D5W 1,000 ML IV SCH (17:28)
[2018-05-21] MEDS: [UNRECOGNIZED DRUG - OTHER] IV SCH ×10 (17:34)
[2018-05-21] MEDS: CALCIUM GLUCONATE IV SCH ×10 (17:34)
[2018-05-21] MEDS: K PHOS IV SCH ×10 (17:34)
[2018-05-21] MEDS: SODIUM ACETATE IV SCH ×10 (17:34)
[2018-05-21] MEDS: TPN PERIPHERAL IV SCH ×10 (17:34)
[2018-05-21] MEDS: DIPHENHYDRAMINE HCL 12.5 MG/5 ML UDC PO PRN (20:49)
[2018-05-21] MEDS ORDERED: NOREPINEPHRINE 4 MG/4 ML VIAL IV ONE (22:04)
[2018-05-22] VITALS (35 sets, daily range): BP systolic 88–135
[2018-05-22] MEDS: CEFEPIME 2 GM in D5W 100 ML IV SCH ×2 (00:19→12:06)
[2018-05-22] MEDS: SUCRALFATE 1 GM/10 ML UDC GT SCH ×4 (00:20→17:31)
[2018-05-22] MEDS: INSULIN REGULAR, HUMAN 100 UNITS/ML, 10 ML VIAL (novoLIN R) SUBCUT PRN ×2 (00:30→07:05)
[2018-05-22 06:55] LABS: MEAN CORPUSCULAR HEMOGLOBIN 33 pg (27-31); MEAN CORPUSCULAR HGB CONC 35 % (32-36); MEAN CORPUSCULAR VOLUME 95 fL (79.0-98.0); RED CELL DISTRIBUTION WIDTH 17.1 % (9.0-15.0); WHITE BLOOD COUNT (AUTO) 17.1 K/uL (4.8-10.8)
[2018-05-22] MEDS: LEVOTHYROXINE SODIUM 0.05 MG TABLET GT SCH (07:00)
[2018-05-22 07:19] LABS: RED BLOOD CELL COUNT(AUTO) 1.98 MIL/uL (4.2-6.2)
[2018-05-22] MEDS: IPRATROPIUM/ALBUTEROL SULFATE 3 ML AMPUL.NEB INH SCH ×4 (07:19→19:41)
[2018-05-22 07:21] LABS: HEMOGLOBIN 6.6 g/dL (14.0-18.0)
[2018-05-22 07:22] LABS: HEMATOCRIT 18.9 % (36-54); PLATELET COUNT (AUTO) 5 K/uL (130-430)
[2018-05-22 07:47] LABS: ALBUMIN 1.5 g/dL (3.4-4.8); CREATININE 2.71 mg/dL (0.55-1.30); PHOSPHORUS 6.3 mg/dL (2.7-4.5); POTASSIUM 5.4 mmol/L (3.5-5.1); TOTAL BILIRUBIN 2.9 mg/dL (0.0-1.0)
[2018-05-22 07:48] LABS: INR 1.8 (0.80-1.20); PROTHROMBIN TIME 18.6 SECS (9.5-12.5)
[2018-05-22] MEDS: MORPHINE 2 MG/ML INJ. SYRINGE IVP PRN ×4 (07:53→17:33)
[2018-05-22] MEDS: LORazepam 2 MG/ML VIAL IVP PRN ×6 (07:54→22:26)
[2018-05-22] MEDS: FINASTERIDE 5 MG TABLET (PROSCAR) GT SCH (08:13)
[2018-05-22] MEDS: BISMUTH SUBSALICYLATE 240 ML BOTTLE GT SCH ×3 (08:15→20:19)
[2018-05-22 08:49] LABS: BAND % (MANUAL) 14 % (0-6); BASOPHILS % (MANUAL) 0 % (0-2); CORRECTED WHITE BLOOD COUNT 15.8 K/uL (4.5-11.0); EOSINOPHILS % (MANUAL) 0 % (0-7); LYMPHOCYTES % (MANUAL) 14 % (20-46); METAMYELOCYTES % 1 % (0-0); MONOCYTES % (MANUAL) 2 % (0-11)
[2018-05-22] MEDS: NOREPINEPHRINE BITARTRATE 4 MG in NS 246 ML IV PRN ×3 (08:54→20:59)
[2018-05-22] MEDS: MORPHINE SULFATE 10 MG/5 ML ORAL SOL. UDC GT SCH (10:21)
[2018-05-22] MEDS ORDERED: HYDROCORTISONE SOD SUCC 100 MG/2 ML VIAL IVP SCH (14:00)
[2018-05-22] MEDS ORDERED: DEXAMETHASONE SOD PHOSPHATE 4 MG/ML VIAL IVP SCH (15:00)
[2018-05-22] MEDS: NS IV SCH (17:30)
[2018-05-22] MEDS: DEXAMETHASONE SOD PHOSPHATE IV SCH (17:30)
[2018-05-22] MEDS: D5W 1,000 ML IV SCH (17:31)
[2018-05-22] MEDS: SODIUM ACETATE IV SCH ×10 (17:33)
[2018-05-22] MEDS: K PHOS IV SCH ×10 (17:33)
[2018-05-22] MEDS: CALCIUM GLUCONATE IV SCH ×10 (17:33)
[2018-05-22] MEDS: TPN PERIPHERAL IV SCH ×10 (17:33)
[2018-05-22] MEDS: [UNRECOGNIZED DRUG - OTHER] IV SCH ×10 (17:33)
[2018-05-22] MEDS: MICAFUNGIN SODIUM 100 MG in NS 100 ML IV SCH (18:42)
[2018-05-23] VITALS (35 sets, daily range): BP systolic 101–166
[2018-05-23] MEDS: CEFEPIME 2 GM in D5W 100 ML IV SCH ×2 (00:16→11:58)
[2018-05-23] MEDS: SUCRALFATE 1 GM/10 ML UDC GT SCH ×4 (00:16→18:15)
[2018-05-23] MEDS: NOREPINEPHRINE BITARTRATE 4 MG in NS 246 ML IV PRN ×2 (00:22→03:34)
[2018-05-23] MEDS: LORazepam 2 MG/ML VIAL IVP PRN ×8 (00:38→23:33)
[2018-05-23] MEDS: INSULIN REGULAR, HUMAN 100 UNITS/ML, 10 ML VIAL (novoLIN R) SUBCUT PRN ×4 (00:38→18:20)
[2018-05-23] MEDS: IPRATROPIUM/ALBUTEROL SULFATE 3 ML AMPUL.NEB INH SCH ×6 (03:00→23:23)
[2018-05-23] MEDS: MORPHINE 2 MG/ML INJ. SYRINGE IVP PRN ×4 (03:14→15:53)
[2018-05-23] MEDS ORDERED: NOREPINEPHRINE 4 MG/4 ML VIAL IV ONE ×2 (03:26→07:37)
[2018-05-23] MEDS ORDERED: SUCRALFATE 1 GM/10 ML UDC ONE (06:12)
[2018-05-23] MEDS: LEVOTHYROXINE SODIUM 0.05 MG TABLET GT SCH (06:13)
[2018-05-23 07:00] LABS: ALBUMIN 2.2 g/dL (3.4-4.8); CREATININE 3.37 mg/dL (0.55-1.30); PHOSPHORUS 7.9 mg/dL (2.7-4.5); TOTAL BILIRUBIN 4.1 mg/dL (0.0-1.0)
[2018-05-23 07:05] LABS: HEMATOCRIT 24.7 % (36-54); HEMOGLOBIN 8.6 g/dL (14.0-18.0); MEAN CORPUSCULAR HEMOGLOBIN 32 pg (27-31); MEAN CORPUSCULAR HGB CONC 35 % (32-36); MEAN CORPUSCULAR VOLUME 91 fL (79.0-98.0); RED BLOOD CELL COUNT(AUTO) 2.72 MIL/uL (4.2-6.2); RED CELL DISTRIBUTION WIDTH 17.6 % (9.0-15.0); WHITE BLOOD COUNT (AUTO) 25.3 K/uL (4.8-10.8)
[2018-05-23 07:07] LABS: CALCIUM 7.1 mg/dL (8.4-11.0)
[2018-05-23 07:11] LABS: POTASSIUM 6.1 mmol/L (3.5-5.1)
[2018-05-23 07:15] LABS: PLATELET COUNT (AUTO) 22 K/uL (130-430)
[2018-05-23] MEDS ORDERED: SODIUM POLYSTYRENE SULFONATE 15 GM/60 ML UDBTL GT ONE (08:00)
[2018-05-23] MEDS: BISMUTH SUBSALICYLATE 240 ML BOTTLE GT SCH ×2 (08:05→08:50)
[2018-05-23 08:28] LABS: INR 1.4 (0.80-1.20)
[2018-05-23] MEDS: FINASTERIDE 5 MG TABLET (PROSCAR) GT SCH (09:04)
[2018-05-23 10:31] LABS: BAND % (MANUAL) 6 % (0-6); BASOPHILS % (MANUAL) 0 % (0-2); EOSINOPHILS % (MANUAL) 0 % (0-7); LYMPHOCYTES % (MANUAL) 4 % (20-46); MONOCYTES % (MANUAL) 2 % (0-11)
[2018-05-23 10:32] LABS: CORRECTED WHITE BLOOD COUNT 23.9 K/uL (4.5-11.0)
[2018-05-23] MEDS ORDERED: HEPARIN SODIUM,PORCINE 5000 UNITS/ML VIAL ONE ×2 (10:36→16:24)
[2018-05-23] MEDS ORDERED: NACL 0.9% 1,000 ML IV ONE (11:30)
[2018-05-23] MEDS: NOREPINEPHRINE BITARTRATE 8 MG in NS 242 ML IV PRN ×2 (14:28→22:03)
[2018-05-23] MEDS ORDERED: SODIUM ACETATE IV SCH ×9 (18:00)
[2018-05-23] MEDS ORDERED: CALCIUM GLUCONATE IV SCH ×9 (18:00)
[2018-05-23] MEDS ORDERED: [UNRECOGNIZED DRUG - OTHER] IV SCH ×9 (18:00)
[2018-05-23] MEDS ORDERED: TPN PERIPHERAL IV SCH ×9 (18:00)
[2018-05-23] MEDS: NS IV SCH (18:39)
[2018-05-23] MEDS: DEXAMETHASONE SOD PHOSPHATE IV SCH (18:39)
[2018-05-23] MEDS: D5W 1,000 ML IV SCH (18:41)
[2018-05-23] MEDS: MICAFUNGIN SODIUM 100 MG in NS 100 ML IV SCH (20:15)
[2018-05-24] VITALS (34 sets, daily range): BP systolic 91–139
[2018-05-24] MEDS: CEFEPIME 2 GM in D5W 100 ML IV SCH ×2 (00:12→12:05)
[2018-05-24] MEDS: SUCRALFATE 1 GM/10 ML UDC GT SCH ×4 (00:36→17:17)
[2018-05-24] MEDS: INSULIN REGULAR, HUMAN 100 UNITS/ML, 10 ML VIAL (novoLIN R) SUBCUT PRN ×4 (00:42→17:14)
[2018-05-24] MEDS: MORPHINE 2 MG/ML INJ. SYRINGE IVP PRN (01:17)
[2018-05-24] MEDS: LORazepam 2 MG/ML VIAL IVP PRN ×5 (03:54→10:53)
[2018-05-24] MEDS: IPRATROPIUM/ALBUTEROL SULFATE 3 ML AMPUL.NEB INH SCH ×6 (03:56→23:36)
[2018-05-24] MEDS: ACETAMINOPHEN 650 MG/20.3 ML UDC GT PRN (04:21)
[2018-05-24] MEDS: LEVOTHYROXINE SODIUM 0.05 MG TABLET GT SCH (06:28)
[2018-05-24 06:48] LABS: BASOPHILS % (AUTO) 0.1 % (0.0-2.0); LYMPHOCYTES # (AUTO) 0.5 K/uL (1.0-5.5); LYMPHOCYTES % (AUTO) 2.6 % (20.5-51.5); MEAN CORPUSCULAR HEMOGLOBIN 32 pg (27-31); MEAN CORPUSCULAR HGB CONC 35 % (32-36); MEAN CORPUSCULAR VOLUME 93 fL (79.0-98.0); MONOCYTES # (AUTO) 0.1 K/uL (0.0-1.0); MONOCYTES % (AUTO) 0.5 % (1.7-9.3); NEUTROPHILS % (AUTO) 96.8 % (40.0-70.0); RED BLOOD CELL COUNT(AUTO) 2.06 MIL/uL (4.2-6.2); WHITE BLOOD COUNT (AUTO) 20.6 K/uL (4.8-10.8)
[2018-05-24] MEDS: NOREPINEPHRINE BITARTRATE 8 MG in NS 242 ML IV PRN ×2 (06:59→15:05)
[2018-05-24 07:21] LABS: INR 1.7 (0.80-1.20); PROTHROMBIN TIME 17.1 SECS (9.5-12.5)
[2018-05-24 07:31] LABS: CREATININE 3.5 mg/dL (0.55-1.30); PHOSPHORUS 7.4 mg/dL (2.7-4.5); POTASSIUM 4.6 mmol/L (3.5-5.1)
[2018-05-24 07:46] LABS: CALCIUM 6.9 mg/dL (8.4-11.0)
[2018-05-24 08:16] LABS: HEMATOCRIT 19.1 % (36-54); HEMOGLOBIN 6.7 g/dL (14.0-18.0)
[2018-05-24 09:29] LABS: PLATELET COUNT (AUTO) 6 K/uL (130-430)
[2018-05-24] MEDS: PROPOFOL DRIP 100 ML IV PRN ×2 (11:35→19:34)
[2018-05-24] MEDS ORDERED: PHYTONADIONE 10 MG in NS 50 ML IV ONE (16:00)
[2018-05-24] MEDS ORDERED: SODIUM ACETATE IV SCH ×9 (18:00)
[2018-05-24] MEDS ORDERED: [UNRECOGNIZED DRUG - OTHER] IV SCH ×9 (18:00)
[2018-05-24] MEDS ORDERED: TPN PERIPHERAL IV SCH ×9 (18:00)
[2018-05-24] MEDS ORDERED: CALCIUM GLUCONATE IV SCH ×9 (18:00)
[2018-05-24] MEDS: IPRATROPIUM/ALBUTEROL SULFATE 3 ML AMPUL.NEB INH PRN (20:17)
[2018-05-25] VITALS (11 sets, daily range): BP systolic 102–141
[2018-05-25] MEDS: MORPHINE 2 MG/ML INJ. SYRINGE IVP PRN ×2 (00:21→05:58)
[2018-05-25] MEDS: NS IV SCH (00:23)
[2018-05-25] MEDS: DEXAMETHASONE SOD PHOSPHATE IV SCH (00:23)
[2018-05-25] MEDS: SUCRALFATE 1 GM/10 ML UDC GT SCH ×2 (00:39→05:25)
[2018-05-25] MEDS: INSULIN REGULAR, HUMAN 100 UNITS/ML, 10 ML VIAL (novoLIN R) SUBCUT PRN ×2 (00:41→05:28)
[2018-05-25] MEDS: CEFEPIME 2 GM in D5W 100 ML IV SCH (01:17)
[2018-05-25] MEDS: MICAFUNGIN SODIUM 100 MG in NS 100 ML IV SCH (01:17)
[2018-05-25] MEDS: NOREPINEPHRINE BITARTRATE 8 MG in NS 242 ML IV PRN (02:12)
[2018-05-25] MEDS: PROPOFOL DRIP 100 ML IV PRN (02:18)
[2018-05-25] MEDS: IPRATROPIUM/ALBUTEROL SULFATE 3 ML AMPUL.NEB INH SCH ×2 (03:58→07:31)
[2018-05-25] MEDS: LEVOTHYROXINE SODIUM 0.05 MG TABLET GT SCH (06:33)
[2018-05-25 06:40] LABS: ALBUMIN 1.3 g/dL (3.4-4.8); CREATININE 3.81 mg/dL (0.55-1.30); PHOSPHORUS 7.7 mg/dL (2.7-4.5); POTASSIUM 4.1 mmol/L (3.5-5.1); TOTAL BILIRUBIN 4.4 mg/dL (0.0-1.0)
[2018-05-25 06:47] LABS: HEMATOCRIT 27.3 % (36-54); HEMOGLOBIN 9.7 g/dL (14.0-18.0); MEAN CORPUSCULAR HEMOGLOBIN 32 pg (27-31); MEAN CORPUSCULAR HGB CONC 36 % (32-36); MEAN CORPUSCULAR VOLUME 91 fL (79.0-98.0); WHITE BLOOD COUNT (AUTO) 24.4 K/uL (4.8-10.8)
[2018-05-25 07:06] LABS: PLATELET COUNT (AUTO) 9 K/uL (130-430)
[2018-05-25 07:10] LABS: CALCIUM 6.4 mg/dL (8.4-11.0)
[2018-05-25 09:26] LABS: BASOPHILS # (AUTO) 0.5 K/uL (0.0-0.2); BASOPHILS % (AUTO) 1.6 % (0.0-2.0); EOSINOPHILS # (AUTO) 0.3 K/uL (0.0-0.4); EOSINOPHILS % (AUTO) 0.9 % (0.0-4.0); HEMOGLOBIN 11.1 g/dL (14.0-18.0); LYMPHOCYTES # (AUTO) 2.1 K/uL (1.0-5.5); LYMPHOCYTES % (AUTO) 6.5 % (20.5-51.5); MEAN CORPUSCULAR HEMOGLOBIN 33 pg (27-31); MEAN CORPUSCULAR HGB CONC 36 % (32-36); MEAN CORPUSCULAR VOLUME 93 fL (79.0-98.0); MONOCYTES # (AUTO) 0.2 K/uL (0.0-1.0); MONOCYTES % (AUTO) 0.5 % (1.7-9.3); NEUTROPHILS # (AUTO) 29.3 K/uL (1.8-7.7); NEUTROPHILS % (AUTO) 90.5 % (40.0-70.0); RED BLOOD CELL COUNT(AUTO) 3.34 MIL/uL (4.2-6.2); RED CELL DISTRIBUTION WIDTH 17.2 % (9.0-15.0)
[2018-05-25 09:31] LABS: PROTHROMBIN TIME 16.7 SECS (9.5-12.5)
[2018-05-25 09:32] LABS: INR 1.5 (0.80-1.20)
[2018-05-25 09:50] LABS: BAND % (MANUAL) 16 % (0-6); BASOPHILS % (MANUAL) 0 % (0-2); CORRECTED WHITE BLOOD COUNT 21.2 K/uL (4.5-11.0); EOSINOPHILS % (MANUAL) 0 % (0-7); LYMPHOCYTES % (MANUAL) 3 % (20-46); MONOCYTES % (MANUAL) 5 % (0-11)
[2018-05-25 09:51] LABS: METAMYELOCYTES % 1 % (0-0); MYELOCYTES % 1 % (0-0)
[2018-05-25] MEDS ORDERED: SODIUM BICARBONATE 8.4% JECT 50 MEQ/50 ML SYRINGE IVP ONE (10:29)
[2018-05-25 11:43] LABS: PLATELET COUNT (AUTO) 10 K/uL (130-430); WHITE BLOOD COUNT (AUTO) 32.4 K/uL (4.8-10.8)
[2018-05-25] MEDS ORDERED: MEROPENEM 500 MG in NS 50 ML IV SCH (14:00)
== END 2018-05-25 10:30 | disposition expired | DRG 314 ==
LOC: SED 21:32 → STU 23:52 → SMU 05-14 15:24 → STU 05-14 22:06 → SIC 05-14 23:01
PROVIDERS: ADMIT Internal Medicine; ATTEND Internal Medicine
PROC: 5A12012 Performance of Cardiac Output, Single, Manual (ICD-10-PCS; 2018-05-12)
PROC: 3E0336Z Introduction of Nutritional Substance into Peripheral Vein, Percutaneous Approach (ICD-10-PCS; 2018-05-13)
PROC: 30233N1 Transfusion of Nonautologous Red Blood Cells into Peripheral Vein, Percutaneous Approach (ICD-10-PCS; 2018-05-15)
PROC: 30233R1 Transfusion of Nonautologous Platelets into Peripheral Vein, Percutaneous Approach (ICD-10-PCS; 2018-05-15)
PROC: 5A09557 Assistance with Respiratory Ventilation, Greater than 96 Consecutive Hours, Continuous Positive Airway Pressure (ICD-10-PCS; 2018-05-15)
PROC: 5A1955Z Respiratory Ventilation, Greater than 96 Consecutive Hours (ICD-10-PCS; 2018-05-19)
PROC: 0BH17EZ Insertion of Endotracheal Airway into Trachea, Via Natural or Artificial Opening (ICD-10-PCS; 2018-05-19)
PROC: 30233L1 Transfusion of Nonautologous Fresh Plasma into Peripheral Vein, Percutaneous Approach (ICD-10-PCS; 2018-05-22)
PROC: 30233K1 Transfusion of Nonautologous Frozen Plasma into Peripheral Vein, Percutaneous Approach (ICD-10-PCS; 2018-05-22)
PROC: 5A1D70Z Performance of Urinary Filtration, Intermittent, Less than 6 Hours Per Day (ICD-10-PCS; 2018-05-23)
PROC: 05HY33Z Insertion of Infusion Device into Upper Vein, Percutaneous Approach (ICD-10-PCS; principal; 2018-05-25)
PROC: B54MZZA Ultrasonography of Right Upper Extremity Veins, Guidance (ICD-10-PCS; 2018-05-25)
DX: T80.211A Bloodstream infection due to central venous catheter, initial encounter (principal); B37.7 Candidal sepsis; D61.810 Antineoplastic chemotherapy induced pancytopenia; R65.21 Severe sepsis with septic shock; J96.01 Acute respiratory failure with hypoxia; E43 Unspecified severe protein-calorie malnutrition; J69.0 Pneumonitis due to inhalation of food and vomit; N17.0 Acute kidney failure with tubular necrosis; G93.41 Metabolic encephalopathy; C78.00 Secondary malignant neoplasm of unspecified lung; Z68.1 Body mass index [BMI] 19.9 or less, adult; K94.23 Gastrostomy malfunction; N39.0 Urinary tract infection, site not specified; B49 Unspecified mycosis; E87.0 Hyperosmolality and hypernatremia; D69.3 Immune thrombocytopenic purpura; N13.8 Other obstructive and reflux uropathy; N40.1 Benign prostatic hyperplasia with lower urinary tract symptoms; R33.8 Other retention of urine; E83.39 Other disorders of phosphorus metabolism; I46.9 Cardiac arrest, cause unspecified; C02.9 Malignant neoplasm of tongue, unspecified; C76.0 Malignant neoplasm of head, face and neck; Y83.3 Surgical operation with formation of external stoma as the cause of abnormal reaction of the patient, or of later complication, without mention of misadventure at the time of the procedure; E87.6 Hypokalemia; R74.0 Nonspecific elevation of levels of transaminase and lactic acid dehydrogenase [LDH]; E86.0 Dehydration; T45.1X5A Adverse effect of antineoplastic and immunosuppressive drugs, initial encounter; N47.1 Phimosis; E87.5 Hyperkalemia; G89.29 Other chronic pain; R13.10 Dysphagia, unspecified; C09.9 Malignant neoplasm of tonsil, unspecified; E03.9 Hypothyroidism, unspecified; Z92.3 Personal history of irradiation; Z87.891 Personal history of nicotine dependence; Y92.89 Other specified places as the place of occurrence of the external cause; Z91.011 Allergy to milk products; Z79.899 Other long term (current) drug therapy
CPT/HCPCS: 36415; 36600; 71045; 76700-TC; 78226; 80048; 80053; 80076; 80202-TC; 81000-TC; 82150-TC; 82803-TC; 82962; 83605; 83690-TC; 83735-TC; 83880; 84100-TC; 84478-TC; 84484; 85007; 85025; 85027; 85384-TC; 85610-TC; 85730-TC; 86886; 86900; 86901; 86920; 86945-TC; 87040-TC; 87070-TC; 87081; 87086; 87205-TC; 87230-TC; 90935; 93005; 93306; 94002; 94003; 94640; 94660; 96361; 96365; 96368; 96375; 97116-GP; 99285; A9537; C1751; J0330; J0610; J0692; J1100; J1442; J1450; J1644; J1720; J1815; J1940; J2060; J2185; J2248; J2250; J2270; J2405; J2543; J2704; J3370; J3430; J3475; J3480; J3490; J7030; J7040; J7050; J7060; J7120; J7620; NO CODE; P9021; P9034; P9059